=== PATIENT | male | born 1945 | race Caucasian/White ===

== ENCOUNTER 2017-09-06 12:39 | Inpatient (IN) | payer MEDICARE ==
[~2017-09-06] VITALS: Ht 175.3 cm; Wt 70.3 kg
--- OUTSIDE RECORDS SUMMARY | ~2017-09-06 | XMS | Encounter Summary ---
Demographics + + + | Address | [address] | | | [place] [address] | + + + | Home Phone | | + + + | Preferred Language | Unknown | + + + | Marital Status | Single | + + + | Scientologist Affiliation | Unknown | + + + | Race | White | + + + | Ethnic Group | Not or | + + + Author + + + | Author | [facility] | + + + | Organization | [facility] | + + + | Address | Unknown | + + + | Phone | Unavailable | + + + Support + + +---------+ + | Name | Relationship | Address | Phone | + + +---------+ + | Stacy Mcghee | ECON | Unknown | | + + +---------+ + Care Team Providers + +------+ + | Care Fence Setter Name | Role | Phone | + +------+ + | No Pcp Per Patient | PCP | Unavailable | + +------+ + Encounter Details +--------+ + + + + | Date | Type | Department | Care Team | Description | +--------+ + + + + | 07/25/ | Lab | [facility] [address] | [address] | | | 2017 | Requisition | [address] [facility] | [place] [address] | | | | | [address] [place], [place] | [address] | | | | | [address] | [facility] | | | | | | [facility] | | | | | | [place] [address] | | | | | | [phone] | | | | | | | | +--------+ + + + + Social History + +-------+ +--------+------+ | Tobacco [...] on file | | + + + as of this encounter Plan of Treatment + +--------+ + + | Name | Priori | Associated Diagnoses | Date/Time | | | ty | | | + +--------+ + + | HSR PROCESS ONLY | Routin | Encounter for | 07/25/2017 4:28 PM | | | e | other specified | PST | | | | special examinations | | | | | (CODE) | | + +--------+ + + as of this encounter Results NSCLC FISH PANLE, FFPE (07/22/2017 12:01 AM) + +--------+ + | [...] | + + + | Slide-Block | [facility] [address] | | [address] [place] [address] | + + + FISH, MOLECULAR PROBE, [...] | | | made by the clinical surface miner. This test | | | | was developed and its performance | | | | characteristics determined by the [facility] | | | | [facility]. It has | | | | not [...] 1988 | | | | (CLIA). The [facility] | | | | Laboratories are fully licensed by the | | | | [facility] under CLIA and are | | | | accredited by the [employer] | | | | Pathologists (CAP). Laboratory | | | | Director: Duke Gore M.D., | | | | Ph.D Electronically reviewed and signed | | | | by:Kalin Sahu, PhD, [facility] | | | | Horse [employer] St[employer] Clinical Molecular | | | | Geneticist07/30/2017 at 12:14 PM | | | | Reviewed and electronically signed by | | | | ERNESTINE CRUZ MD,[facility]07/30/2017 4:18 PM | | + + + + + + + | Specimen | Performing Laboratory | + + + | Slide-Block | [facility] [address] | | [address] [place] [address] | + + + GENETRABuyItRideIt LUNG CANCER PANEL (07/22/2017 12:01 AM) + + + + | Component | Value | Ref Range | + + + + | GENETRAILS LUNG | See Interpretation. | | | [...] on an Illumina | | | | [id number]. The minimum detectable mutant | | | [...] | | | characteristics determined by the [facility] | | | | [facility]. It has | | | [...] 1988 | | | | (CLIA). The [facility] | | | | Laboratories are fully licensed by the | | | | state [place] under CLIA and are | | | | accredited by the [employer] | | | | Pathologists (CAP). Laboratory | | | | Director: Duke Gore M.D., | | | | Ph.D Reviewed and electronically signed by | | | | KEN WORRELL MD08/07/2017 7:54 AM | | + + + + + + + | Specimen | Performing Laboratory | + + + | Slide-Block | [facility] [address] | | [address] [place] [address] | + + + in this encounter Visit Diagnoses + + | Diagnosis | + + | Encounter for other specified special examinations (CODE) | + +"
--- OUTSIDE RECORDS SUMMARY | ~2017-09-06 | XMS | Encounter Summary ---
Demographics + + + | Address | [address] | | | [place] [address] | + + + | Home Phone | | + + + | Preferred Language | Unknown | + + + | Marital Status | Single | + + + | Sabianism Affiliation | Unknown | + + + | Race | White | + + + | Ethnic Group | Not or | + + + Author + + + | Author | [facility] | + + + | Organization | [facility] | + + + | Address | Unknown | + + + | Phone | Unavailable | + + + Support + + +---------+ + | Name | Relationship | Address | Phone | + + +---------+ + | Stacy Mcghee | ECON | Unknown | | + + +---------+ + Care Team Providers + +------+ + | Care Reuse Technician Name | Role | Phone | + +------+ + | Unknown | PCP | Unavailable | + +------+ + Reason for Referral Diagnostic Testing (Routine) +--------+--------+ + + + + | Status | Reason | Specialty | Diagnoses / | Referred By | Referred To | | | | | Procedures | Contact | Contact | +--------+--------+ + + + + | Closed | | Radiology | Diagnoses | Manuelin, | Rad [facility] | | | | | Brain | Srinivasa Cope MD | [address] | | | | | metastases | [address] | | | | | ([facility]) | [address] | [facility] | | | | | Procedures | [address] | Mailcode: | | | | | MRI BRAIN | [place], [place] | [address] | | | | | RADIATION | [address] | [place] | | | | | THERAPY | Phone: | Research | | | | | [address]ING [address] | [phone] | [place] | | | | | CONTRAST | Fax: | [place], [place] | | | | | | [phone] | [address] | | | | | | | Phone: | | | | | | | [phone] | | | | | | | Fax: | | | | | | | [phone] | +--------+--------+ + + + + PROC - Dept/Practice Procedure (Routine) +--------+--------+ + + + + | Status | Reason | Specialty | Diagnoses / | Referred By | Referred To | | | | | Procedures | Contact | Contact | +--------+--------+ + + + + | Closed | | Radiation | Diagnoses | Zenobia, | [facility] | | | | Oncology | Brain | Srinivasa Cope MD | [place] [address] | | | | | metastases | [address] | [address] | | | | | ([facility]) | [address] | [facility] | | | | | Procedures | [address] | Mailcode: | | | | | SIMULATION | [place], [place] | [address] | | | | | IMAGING | [id number] [facility] | | | | | | Phone: | Hospital | | | | | | [phone] | [facility] | | | | | | Fax: | [place], [place] | | | | | | [phone] | [address] | | | | | | | Phone: | | | | | | | [phone] | | | | | | | Fax: | | | | | | | [phone] | +--------+--------+ + + + + Encounter Details +--------+ + + + + | Date | Type | Department | Care Team | Description | +--------+ + + + + | 08/06/ | It Compliance Manager | Radiation Oncology | Srinivasa Fregoso, | Brain metastases | | 2018 | | at [facility] [address] | [address] | (HCC) (Primary Dx) | | | | [address] | [facility] | | | | | [address]i | [place], [place] | | | | | [place], | [address] | | | | | [place] [address] | [phone] | | | | | [phone] | | | +--------+ + + + [...] as of this encounter Plan of Treatment Not on fileas of this encounter Results SIMULATION IMAGING (08/13/2017 12:01 PM) + + | Narrative | + + | Refer to the encounter notes for imaging results. | + + MRI BRAIN RADIATION THERAPY PLANNING [address] CONTRAST (08/12/2017 8:29 AM) + + + | Specimen | Performing Laboratory | + + + | | [facility] RADIOLOGY VOICE RECOGNITION | + + + [...] report as now presented. | + + in this encounter Visit Diagnoses + + | Diagnosis | + + | Brain metastases (HCC) - Primary | + + | Secondary malignant neoplasm of brain and spinal cord | + +"
--- OUTSIDE RECORDS SUMMARY | ~2017-09-06 | XMS | Encounter Summary ---
Demographics + + + | Address | [address] | | | [place] [address] | + + + | Home Phone | | + + + | Preferred Language | Unknown | + + + | Marital Status | Single | + + + | Latter-Day Affiliation | Unknown | + + + | Race | White | + + + | Ethnic Group | Not or | + + + Author + + + | Author | [facility] | + + + | Organization | [facility] | + + + | Address | Unknown | + + + | Phone | Unavailable | + + + Support + + +---------+ + | Name | Relationship | Address | Phone | + + +---------+ + | Stacy Mcghee | ECON | Unknown | | + + +---------+ + Care Team Providers + +------+ + | Care Beater Lead Name | Role | Phone | + +------+ + | No Pcp Per Patient | PCP | Unavailable | + +------+ + Encounter Details +--------+ + + + + | Date | Type | Department | Care Team | Description | +--------+ + + + + | 08/06/ | Procedure | Diagnostic Imaging | | | | 2018 | Pass | Services at [facility] | | | | | | [address] | | | | | | [facility] | | | | | | Mailcode: [address] | | | | | | [place] [facility] | | | | | | [place], [place] | | | | | | [address] | | | | | | [phone] | | | +--------+ + + + [...] Treatment Not on fileas of this encounter Visit Diagnoses Not on filein this encounter"
--- OUTSIDE RECORDS SUMMARY | ~2017-09-06 | XMS | Encounter Summary ---
Demographics + + + | Address | [address] | | | [place] [address] | + + + | Home Phone | | + + + | Preferred Language | Unknown | + + + | Marital Status | Single | + + + | Protestant Affiliation | Unknown | + + + | Race | White | + + + | Ethnic Group | Not or | + + + Author + + + | Author | [facility] | + + + | Organization | [facility] | + + + | Address | Unknown | + + + | Phone | Unavailable | + + + Support + + +---------+ + | Name | Relationship | Address | Phone | + + +---------+ + | Stacy Mcghee | ECON | Unknown | | + + +---------+ + Care Team Providers + +------+ + | Care Core Java Software Engineer Name | Role | Phone | + +------+ + | No Pcp Per Patient | PCP | Unavailable | + +------+ + Reason for Visit + + + | Reason | Comments | + + + | Teaching session | | | with patient | | + + + Encounter Details +--------+ + + + + | Date | Type | Department | Care Team | Description | +--------+ + + + + | 08/19/ | Clinical | Radiation Oncology | [facility] [address] | Teaching session | | 2017 | Support | at [facility] [address] | [address] | with patient | | | Staff | [address] | [address] [place], [place] | | | | | [address] | [address] | | | | | [place], | | | | | | [place] [address] | | | | | | [phone] | | | +--------+ + + + [...] + + + as of this encounter Progress Ash Patel RN - 08/19/2017 11:00 AM PDTNursing Note: Met with Emir Mcghee today to give site specific radiation treatment education. Patient i s alert, oriented, and wheelchair with unstable gait, and is accompanied by his son in law. The patient lives in [place], although he is currently staying at the [facility] in [place]. The patient is here to begin radiation treatment to the brain and has verified this is the correct location of the treatment. Patient oriented to clinic, treatment routine, projected length of treatment (6 fractions), and the schedule for weekly physician visits. A site specific radiation therapy information al packet was given and possible side effects were reviewed. Patient verbalized understandin g of information discussed. Patient indicated that he will be starting chemotherapy soon. 15 minutes was spent in face to face discussion and teaching with the patient during this e ncounter. Refer to Patient Education Report for additional documentation. in this encounter Plan of Treatment Not on fileas of this encounter Visit Diagnoses + + | Diagnosis | + + | Encounter for radiotherapy - Primary | + + | Radiotherapy | + +"
--- OUTSIDE RECORDS SUMMARY | ~2017-09-06 | XMS | Encounter Summary ---
Demographics + + + | Address | [address] | | | [place] [address] | + + + | Home Phone | | + + + | Preferred Language | Unknown | + + + | Marital Status | Single | + + + | Anglican Affiliation | Unknown | + + + | Race | White | + + + | Ethnic Group | Not or | + + + Author + + + | Author | [facility] | + + + | Organization | [facility] | + + + | Address | Unknown | + + + | Phone | Unavailable | + + + Support + + +---------+ + | Name | Relationship | Address | Phone | + + +---------+ + | Stacy Mcghee | ECON | Unknown | | + + +---------+ + Care Team Providers + +------+ + | Care Senior Firmware Engineer Name | Role | Phone | + +------+ + | No Pcp Per Patient | PCP | Unavailable | + +------+ + Reason for Visit Consultation (Routine) + +--------+ + + + + | Status | Reason | Specialty | Diagnoses / | Referred By | Referred To | | | | | Procedures | Contact | Contact | + +--------+ + + + + | Authorized | | Radiation | Diagnoses | Danni, | Zenobia, | | | | Oncology | Malignant | Jass Bowles MD | Srinivasa Cope MD | | | | | neoplasm of | [place] [address] | [address] [facility] | | | | | upper lobe, | [facility] | [facility] | | | | | left | CENTER [address] | [address] [place], | | | | | bronchus or | [address] | [place] | | | | | lung Lung | [place] | [address] | | | | | Ca w/ Brain | [address] | Phone: | | | | | Mets | [place], | [phone] | | | | | Procedures | [place] [address] | Fax: | | | | | Consult, | Phone: | [phone] | | | | | Treat, F/U | [phone] | | | | | | | Fax: | | | | | | | [phone] | | + +--------+ + + + + Encounter Details +--------+ + + + + | Date | Type | Department | Care Team | Description | +--------+ + + + + | 08/21/ | Hospital | Radiation Oncology | | | | 2018 | Encounter | at [facility] [address] | | | | | | [address] | | | | | | [address] | | | | | | [place], | | | | | | [place] [address] | | | | | | [phone] | | | +--------+ + + + [...] + + + as of this encounter Medications at Time of Discharge + + +-------+---------+ + + | Medication | Sig. | Disp. | Refills | Start | End Date | | | | | | Date | | + + +-------+---------+ + + | atorvastatin 40 mg | Take 40 mg by mouth | | | | | | oral tablet | once daily. | | | | | + + +-------+---------+ + + | | 1 drop as needed. | | | | | | carboxymethylcellulo | | | | | | | se 0.5 % ophthalmic | | | | | | | (eye) dropperette | | | | | | + + +-------+---------+ + + | cetirizine 10 mg | Take 10 mg by mouth | | | | | | oral tablet | once daily. | | | | | + + +-------+---------+ + + | dexamethasone 4 mg | Take 4 mg by mouth | | | | | | oral tablet | once daily. | | | | | + + +-------+---------+ + + | ERGOCALCIFEROL | Take 1,000 Units by | | | | | | (VITAMIN D2) | mouth. | | | | | | (VITAMIN D ORAL) | | | | | | + + +-------+---------+ + + | levETIRAcetam 500 | take 1 tablet by | | 0 | 07/05/19 | | | mg oral tablet | mouth twice a day | | | 18 | | + + +-------+---------+ + + | naproxen 500 mg | Take 500 mg by mouth | | | | | | oral tablet | two times daily. | | | | | + + +-------+---------+ + + | OXYCODONE HCL | Take by mouth as | | | | | | (OXYCODONE ORAL) | needed. | | | | | + + +-------+---------+ + + | sildenafil 100 mg | Take 100 mg by mouth | | | | | | oral tablet | once daily as | | | | | | | needed. Take | | | | | | | approximately 1 hour | | | | | | | before sexual | | | | | | | activity. Max of | | | | | | | once daily. | | | | | + + +-------+---------+ + + as of this encounter Plan of Treatment Not on fileas of this encounter Visit Diagnoses Not on filein this encounter"
--- OUTSIDE RECORDS SUMMARY | ~2017-09-06 | XMS | Encounter Summary ---
Demographics + + + | Address | [address] | | | [place] [address] | + + + | Home Phone | | + + + | Preferred Language | Unknown | + + + | Marital Status | Single | + + + | Zoroastrian Affiliation | Unknown | + + + | Race | White | + + + | Ethnic Group | Not or | + + + Author + + + | Author | [facility] | + + + | Organization | [facility] | + + + | Address | Unknown | + + + | Phone | Unavailable | + + + Support + + +---------+ + | Name | Relationship | Address | Phone | + + +---------+ + | Stacy Mcghee | ECON | Unknown | | + + +---------+ + Care Team Providers + +------+ + | Care Mold Repair Technician Name | Role | Phone | + +------+ + | No Pcp Per Patient | PCP | Unavailable | + +------+ + Encounter Details +--------+---------+ + + + | Date | Type | Department | Care Team | Description | +--------+---------+ + + + | 08/21/ | Office | Radiation Oncology | Srinivasa Fregoso, | Encounter for | | 2018 | Visit | at [facility] [address] | [address] | radiotherapy | | | | [address] | [address] | (Primary Dx) | | | | [address] | [place], [place] | | | | | [place], | [address] | | | | | [place] [address] | [phone] | | | | | [phone] | | | +--------+---------+ + + + Social History + +-------+ [...] + + + as of this encounter Last Filed Vital Signs + + + + | Vital Sign | Reading | Time Taken | + + + + | Blood Pressure | 114/63 | 08/21/2017 12:07 PM PDT | + + + + | Pulse | 61 | 08/21/2017 12:07 PM PDT | + + + + | Temperature | 36.6 C (97.9 F) | 08/21/2017 12:07 PM PDT | + + + + | Respiratory Rate | 18 | 08/21/2017 12:07 PM PDT | + + + + | Oxygen Saturation | 96% | 08/21/2017 12:07 PM PDT | + + + + | Inhaled Oxygen | - | - | | Concentration | | | + + + + | Weight | 70.3 kg (155 lb) | 08/21/2017 12:07 PM PDT | + + + + | Height | - | - | + + + + | Body Mass Index | - | - | + + + + in this encounter Progress Notes Srinivasa Fregoso MD - 08/21/2017 12:30 PM PDTFormatting of this note may be different from the original. Radiation Oncology - On Treatment Visit Note ID: [id number] y.o. 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 Plan for SBRT 3-5fx to re section cavities and SRS to gross disease in R anterior frontal and R temporal lobes. He is here today during treatment for an on treatment visit. Multiple lesions Concurrent Chemotherapy: Sequential SUBJECTIVE: He is feeling fatigued. He did not sleep well last night because the facility he is staying at was noisy. He reports back pain. Taking oxycodone for pain relief. No headaches or swell ing. OBJECTIVE: Vital Signs: BP 114/63 | Pulse 61 | Temp (Src) 36.6 C (97.9 F) (Oral) | RR 18 | Wt 70.3 kg (155 lb) | SpO2 96[Room Air[% Pain Score: 0 Wt Readings from Last 3 Encounters: 08/21/17 70.3 kg (155 lb) Emir Mcghee's mode of transportation is wheelchair. Skin: no erythema. LABS: Recent Labs 08/12/17 0659 CR 0.9 ASSESSMENT/PLAN: Tolerating treatment. The patient's chart and films were reviewed. Cont RT. I have reviewed and verified the above scribed note of my visit with this patient as record ed by Afsaneh Suh. SRINIVASA FREGOSO MD RADIATION ONCOLOGY AT [address] [address] I, Afsaneh Suh, am functioning as a scribe for Dr. Srinivasa Fregoso MD, PhD. Sandro Lazo MA - 08/21/2017 12:30 PM PDTPt presents for an OTV. Pt is AOX3, walks with a steady gait. Vital signs as noted in EPIC.in this encounter Plan of Treatment Not on fileas of this encounter Visit Diagnoses + + | Diagnosis | + + | Encounter for radiotherapy - Primary | + + | Radiotherapy | + +"
--- OUTSIDE RECORDS SUMMARY | ~2017-09-06 | XMS | Encounter Summary ---
Demographics + + + | Address | [address] | | | [place] [address] | + + + | Home Phone | | + + + | Preferred Language | Unknown | + + + | Marital Status | Single | + + + | Latter Day Affiliation | Unknown | + + + | Race | White | + + + | Ethnic Group | Not or | + + + Author + + + | Author | [facility] | + + + | Organization | [facility] | + + + | Address | Unknown | + + + | Phone | Unavailable | + + + Support + + +---------+ + | Name | Relationship | Address | Phone | + + +---------+ + | Stacy Mcghee | ECON | Unknown | | + + +---------+ + Care Team Providers + +------+ + | Care Painter Chassis Name | Role | Phone | + +------+ + | No Pcp Per Patient | PCP | Unavailable | + +------+ + Encounter Details +--------+ + + + + | Date | Type | Department | Care Team | Description | +--------+ + + + + | 08/14/ | Documentati | Radiation Oncology | Srinivasa Fregoso, | | | 2018 | on | at [facility] [address] | [address] | | | | | [address] | [address] | | | | | [address] | [place], [place] | | | | | [place], | [address] | | | | | [place] [address] | [phone] | | | | | [phone] | | | +--------+ + + + [...]
--- OUTSIDE RECORDS SUMMARY | ~2017-09-06 | XMS | Encounter Summary ---
Demographics + + + | Address | [address] | | | [place] [address] | + + + | Home Phone | | + + + | Preferred Language | Unknown | + + + | Marital Status | Single | + + + | Taoism Affiliation | Unknown | + + + | Race | White | + + + | Ethnic Group | Not or | + + + Author + + + | Author | [facility] | + + + | Organization | [facility] | + + + | Address | Unknown | + + + | Phone | Unavailable | + + + Support + + +---------+ + | Name | Relationship | Address | Phone | + + +---------+ + | Stacy Mcghee | ECON | Unknown | | + + +---------+ + Care Team Providers + +------+ + | Care Pss Delivery Professional Name | Role | Phone | + [...] Closed | | Radiology | Diagnoses | [place], | Rad Mri Hrc | | | | | Brain | Srinivasa Cope MD | [address] | | | | | metastases | [address] | [address] | | | | | ([facility]) | [address] | [facility] | | | | | Procedures | [facility] | Mailcode: | | | | | MRI BRAIN | [place], [place] | [address] | | | | | RADIATION | [address] | [place] | | | | | THERAPY | Phone: | Research | | | | | [address] | [phone] | Center | | | | | CONTRAST | Fax: | [place], [place] | | | | | | [phone] | [address] | | | | | | | Phone: | | | | | | | [phone] | | | | | | | Fax: | | | | | | | [phone] | +--------+--------+ + + + + Diagnostic Testing (Routine) +--------+--------+ + + + + | Status | Reason | Specialty | Diagnoses / | Referred By | Referred To | | | | | Procedures | Contact | Contact | +--------+--------+ + + + + | Closed | | Radiology | Diagnoses | [place], | Rad Mri Hrc | | | | | Brain | Srinivasa Cope MD | [address] | | | | | metastases | [address] | [address] | | | | | ([facility]) | [address] | [facility] | | | | | Procedures | [facility] | Mailcode: | | | | | MRI BRAIN | [place], [place] | [address] | | | | | RADIATION | [address] | [place] | | | | | THERAPY | Phone: | Research | | | | | [address] | [phone] | [place] | | | | | CONTRAST | Fax: | [place], [place] | | | | | | [phone] | [address] | | | | | | | Phone: | | | | | | | [phone] | | | | | | | Fax: | | | | | | | [phone] | +--------+--------+ + + + + Reason for Visit Diagnostic Testing (Routine) +--------+--------+ + + + + | Status | Reason | Specialty | Diagnoses / | Referred By | Referred To | | | | | Procedures | Contact | Contact | +--------+--------+ + + + + | Closed | | Radiology | Diagnoses | [place], | Rad [facility]ri H[facility] | | | | | Brain | Srinivasa Cope MD | [address] | | | | | metastases | [address] | [address] | | | | | (HCC) | [address] | [facility] | | | | | Procedures | [facility] | Mailcode: | | | | | MRI BRAIN | [place], [place] | [address] | | | | | RADIATION | [address] | [place] | | | | | THERAPY | Phone: | Research | | | | | [address] | [phone] | Center | | | | | CONTRAST | Fax: | [place], [place] | | | | | | [phone] | [address] | | | | | | | Phone: | | | | | | | [phone] | | | | | | | Fax: | | | | | | | [phone] | +--------+--------+ + + + + Encounter Details +--------+ + + + + | Date | Type | Department | Care Team | Description | +--------+ + + + + | 08/12/ | Hospital | Diagnostic Imaging | Srinivasa Fregoso, | | | 2018 | Encounter | Services at [facility] | [address] | | | | | [address] | [facility] | | | | | [facility] | [place], [place] | | | | | [address]: [address] | [address] | | | | | [facility] | [phone] | | | | | [place], [place] | | | | | | [address] | | | | | | [phone] | | | +--------+ + + + [...] Not on fileas of this encounter Results MRI BRAIN RADIATION THERAPY PLANNING [address] CONTRAST [...] | + + + | Blood | [facility] [address] | | | [place] [address] | + + + in this encounter Visit Diagnoses + + | Diagnosis | + + | Brain metastases (HCC) | + + | Secondary malignant neoplasm of brain and spinal cord | + + Administered Medications + +---------+ +-------+------+------+ | Medication Order | MAR | Action | Dose | Rate | Site | | | Action | Date | | | | + +---------+ +-------+------+------+ | gadoterate meglumine (DOTAREM) | IV Push | | 15 mL | | | | 0.5 mmol/mL injection 15 mL 15 | | 8 08:00 | | | | | mL (rounded from 14.8 mL = 0.2 | | PDT | | | | | mL/kg | | | | | | | 74 kg Order-specific weight), | | | | | | | intravenous, ONCE, 1 dose, Mon | | | | | | | 08/12/17 at 0800 | | | | | | + +---------+ +-------+------+------+ +---+---+ | | | +---+---+ in this encounter"
--- OUTSIDE RECORDS SUMMARY | ~2017-09-06 | XMS | Encounter Summary ---
Demographics + + + | Address | [address] | | | [place] [address] | + + + | Home Phone | | + + + | Preferred Language | Unknown | + + + | Marital Status | Single | + + + | Mormonism Affiliation | Unknown | + + + | Race | White | + + + | Ethnic Group | Not or | + + + Author + + + | Author | [facility] | + + + | Organization | [facility] | + + + | Address | Unknown | + + + | Phone | Unavailable | + + + Support + + +---------+ + | Name | Relationship | Address | Phone | + + +---------+ + | Stacy Mcghee | ECON | Unknown | | + + +---------+ + Care Team Providers + +------+ + | Care Bank Vault Clerk Name | Role | Phone | + +------+ + | No Pcp Per Patient | PCP | Unavailable | + +------+ + Reason for Referral PROC - Dept/Practice Procedure (Routine) +--------+--------+ + [...] Aldo Blum | | | | | ([facility]) | [place] | [facility] | | | | | Procedures | [facility] | Mailcode: | | | | | SIMULATION | [facility] [place] | [address] | | | | | IMAGING | [address] [facility] | | | | | | Phone: | [facility] | | | | | | [phone] | [facility] | | | | | | Fax: | [place], [place] | | | | | | [phone] | [address] | | | | | | | Phone: | | | | | | | [phone] | | | | | | | Fax: | | | | | | | [phone] | +--------+--------+ + + + + PROC [...] Aldo Blum | | | | | ([facility]) | [place] | [facility] | | | | | Procedures | [facility] | Mailcode: | | | | | SIMULATION | [place], [place] | [address] | | | | | IMAGING | [address] [facility] | | | | | | Phone: | Hospital | | | | | | [phone] | [facility] | | | | | | Fax: | [place], [place] | | | | | | [phone] | [address] | | | | | | | Phone: | | | | | | | [phone] | | | | | | | Fax: | | | | | | | [phone] | +--------+--------+ + + + + Reason for Visit PROC - Dept/Practice Procedure (Routine) +--------+--------+ + + + + | Status | Reason | Specialty | Diagnoses / | Referred By | Referred To | | | | | Procedures | Contact | Contact | +--------+--------+ + + + + | Closed | | Radiation | Diagnoses | [facility] | [facility] | | | | Oncology | Brain | Srinivasa Cope MD | [place] [address] | | | | | metastases | [address] | Aldo Blum | | | | | ([facility]) | [place] | [facility] | | | | | Procedures | [facility] | Mailcode: | | | | | SIMULATION | [place], [place] | [address] | | | | | IMAGING | [address] [facility] | | | | | | Phone: | Hospital | | | | | | [phone] | [facility] | | | | | | Fax: | [place], [place] | | | | | | [phone] | [address] | | | | | | | Phone: | | | | | | | [phone] | | | | | | | Fax: | | | | | | | [phone] | +--------+--------+ + + + + Encounter Details +--------+ + + + + | Date | Type | Department | Care Team | Description | +--------+ + + + + | 08/13/ | Hospital | Radiation Oncology | | | | 2018 | Encounter | at [facility] [address] | | | | | | [facility] | | | | | | Annabel Tripathi | | | | | | [place], | | | | | | [place] [address] | | | | | | [phone] | | | +--------+ + + + [...] notes for imaging results. | + + in this encounter Visit Diagnoses + + | Diagnosis | + + | Brain metastases (HCC) | + + | Secondary malignant neoplasm of brain and spinal cord | + +"
--- OUTSIDE RECORDS SUMMARY | ~2017-09-06 | XMS | Encounter Summary ---
Demographics + + + | Address | [address] | | | [place] [address] | + + + | Home Phone | | + + + | Preferred Language | Unknown | + + + | Marital Status | Single | + + + | Orthodox Affiliation | Unknown | + + + | Race | White | + + + | Ethnic Group | Not or | + + + Author + + + | Author | [facility] | + + + | Organization | [facility] | + + + | Address | Unknown | + + + | Phone | Unavailable | + + + Support + + +---------+ + | Name | Relationship | Address | Phone | + + +---------+ + | Stacy Mcghee | ECON | Unknown | | + + +---------+ + Care Team Providers + +------+ + | Care Business Partner Name | Role | Phone | + [...] | | | | neoplasm of | [place] | [address] [facility] | | | | | upper lobe, | A MEDICAL | [facility] | | | | | left | [address]ENTER [address] | [address] [place], | | | | | bronchus or | [address] | [place] | | | | | lung Lung | [place] | [address] | | | | | Ca w/ Brain | [address] | Phone: | | | | | Mets | [place], | [phone] | | | | | Procedures | [place] [address] | Fax: | | | | | Consult, | Phone: | [phone] | | | | | Treat, F/U | [phone] | | | | | | | Fax: | | | | | | | [phone] | | + +--------+ + + + + Encounter Details +--------+ + + + + | Date | Type | Department | Care Team | Description | +--------+ + + + + | 08/28/ | Hospital | Radiation Oncology | | | | 2018 | Encounter | at [facility] [address] | | | | | | [address] | | | | | | Annabel Tripathi | | | | | | [place], | | | | | | [place] [address] | | | | | | [phone] | | | +--------+ + + + [...]
--- OUTSIDE RECORDS SUMMARY | ~2017-09-06 | XMS | Encounter Summary ---
Demographics + + + | Address | [address] | | | [place] [address] | + + + | Home Phone | | + + + | Preferred Language | Unknown | + + + | Marital Status | Single | + + + | Episcopalian Affiliation | Unknown | + + + | Race | White | + + + | Ethnic Group | Not or | + + + Author + + + | Author | [facility] | + + + | Organization | [facility] | + + + | Address | Unknown | + + + | Phone | Unavailable | + + + Support + + +---------+ + | Name | Relationship | Address | Phone | + + +---------+ + | Stacy Mcghee | ECON | Unknown | | + + +---------+ + Care Team Providers + +------+ + | Care Technology Assistant Name | Role | Phone | + [...] | | | | neoplasm of | [place] | [address] [facility] | | | | | upper lobe, | A MEDICAL | [facility] | | | | | left | CENTER [address] | [address] [place], | | | | | bronchus or | [address] | [place] | | | | | lung Lung | [place] | [address] | | | | | Ca w/ Brain | [address] | Phone: | | | | | Mets | [place], | [phone] | | | | | Procedures | [place] [address] | Fax: | | | | | Consult, | Phone: | [phone] | | | | | Treat, F/U | [phone] | | | | | | | Fax: | | | | | | | [phone] | | + +--------+ + + + + Encounter Details +--------+ + + + + | Date | Type | Department | Care Team | Description | +--------+ + + + + | 08/26/ | Hospital | Radiation Oncology | | | | 2018 | Encounter | at [facility] [address] | | | | | | [address] [facility] | | | | | | Annabel Tripathi | | | | | | [place], | | | | | | [place] [address] | | | | | | [phone] | | | +--------+ + + + [...]
--- OUTSIDE RECORDS SUMMARY | ~2017-09-06 | XMS | Encounter Summary ---
Demographics + + + | Address | [address] | | | [place] [address] | + + + | Home Phone | | + + + | Preferred Language | Unknown | + + + | Marital Status | Single | + + + | Spiritism Affiliation | Unknown | + + + | Race | White | + + + | Ethnic Group | Not or | + + + Author + + + | Author | [facility] | + + + | Organization | [facility] | + + + | Address | Unknown | + + + | Phone | Unavailable | + + + Support + + +---------+ + | Name | Relationship | Address | Phone | + + +---------+ + | Stacy Mcghee | ECON | Unknown | | + + +---------+ + Care Team Providers + +------+ + | Care Choir Singer Name | Role | Phone | + [...] | | | | neoplasm of | [place] | [address] [facility] | | | | | upper lobe, | A MEDICAL | [facility] | | | | | left | CENTER [address] | [address] [place], | | | | | bronchus or | [address] | [place] | | | | | lung Lung | [place] | [address] | | | | | Ca w/ Brain | [address] | Phone: | | | | | Mets | [place], | [phone] | | | | | Procedures | [place] [address] | Fax: | | | | | Consult, | Phone: | [phone] | | | | | Treat, F/U | [phone] | | | | | | | Fax: | | | | | | | [phone] | | + +--------+ + + + + Encounter Details +--------+ + + + + | Date | Type | Department | Care Team | Description | +--------+ + + + + | 08/23/ | Hospital | Radiation Oncology | | | | 2018 | Encounter | at [facility] [address] | | | | | | [address] [facility] | | | | | | Annabel Tripathi | | | | | | [place], | | | | | | [place] [address] | | | | | | [phone] | | | +--------+ + + + [...]
--- OUTSIDE RECORDS SUMMARY | ~2017-09-06 | XMS | Encounter Summary ---
Demographics + + + | Address | [address] | | | [place] [address] | + + + | Home Phone | | + + + | Preferred Language | Unknown | + + + | Marital Status | Single | + + + | Adventism Affiliation | Unknown | + + + | Race | White | + + + | Ethnic Group | Not or | + + + Author + + + | Author | [facility] | + + + | Organization | [facility] | + + + | Address | Unknown | + + + | Phone | Unavailable | + + + Support + + +---------+ + | Name | Relationship | Address | Phone | + + +---------+ + | Stacy Mcghee | ECON | Unknown | | + + +---------+ + Care Team Providers + +------+ + | Care Clothing Sales Assistant Name | Role | Phone | [...] | | | | neoplasm of | [place] | [address] [facility] | | | | | upper lobe, | A MEDICAL | [facility] | | | | | left | CENTER [address] | Rd [place], | | | | | bronchus or | [address] | [place] | | | | | lung Lung | [place] | [address] | | | | | Ca w/ Brain | [address] | Phone: | | | | | Mets | [place], | [phone] | | | | | Procedures | [place] [address] | Fax: | | | | | Consult, | Phone: | [phone] | | | | | Treat, F/U | [phone] | | | | | | | Fax: | | | | | | | [phone] | | + +--------+ + + + [...] | | | | | | [place], | | | | | | [place] [address] | | | | | | [phone] | | | +--------+ + + + [...]
--- OUTSIDE RECORDS SUMMARY | ~2017-09-06 | XMS | Encounter Summary ---
Demographics + + + | Address | [address] | | | [place] [address] | + + + | Home Phone | | + + + | Preferred Language | Unknown | + + + | Marital Status | Single | + + + | Religion Affiliation | Unknown | + + + | Race | Unknown | + + + | Ethnic Group | Unknown | + + + Author + + + | Author | [facility] | | | and [place] | + + + | Organization | [facility] | | | and [place] | + + + | Address | Unknown | + + + | Phone | Unavailable | + + + Support + + +---------+ + | Name | Relationship | Address | Phone | + + +---------+ + | Manuel Mcghee | ECON | Unknown | | + + +---------+ + | Sarita Patton | ECON | Unknown | | + + +---------+ + Care Team Providers + +------+ + | Care Shearing Shed Worker Name | Role | Phone | + +------+ + | Unknown, Doctor | PCP | Unavailable | + +------+ + Reason for Referral Diagnostic/Screening (Routine) + +--------+ + + + + | Status | Reason | Specialty | Diagnoses / | Referred By | Referred To | | | | | Procedures | Contact | Contact | + +--------+ + + + + | Pending | | Radiology | Diagnoses | Ayla | [facility] | | Review | | | Mass of | Tatyana, SUPERVISOR POLE YARD | [place] | | | | | upper lobe | [address] [place] | | | | | of right | [address] | MEDICAL | | | | | lung | [address] [place] | CENTER [address] | | | | | Procedures | [place] | [address] | | | | | PET CT Skull | [address] | [place], | | | | | Base To Mid | Phone: | [place] [address] | | | | | Thigh | [phone] | Phone: | | | | | | Fax: | [phone] | | | | | | [phone] | Fax: | | | | | | | [phone] | + +--------+ + + + + Encounter Details +--------+ + + + + | Date | Type | Department | Care Team | Description | +--------+ + + + + | 07/15/ | Ancillary | [facility] | Tatyana Aguila FNP | Mass of upper lobe | | 2018 | Orders | MED CTR XRAY [address] | [address] | of right lung | | | | [address] [place] | [place] | | | | | [place] [address] | [address] | | | | | [phone] | | | +--------+ + + + [...] Name | Priori | Associated Diagnoses | Order Schedule | | | ty | | | + +--------+ + + | PET CT Skull Base To Mid Thigh | Routin | Mass of upper lobe | Expected: | | | e | of right lung | 07/15/2017, Expires: | | | | | 07/15/2018 | + +--------+ + + as of this encounter Visit Diagnoses + + | Diagnosis | + + | Mass of upper lobe of right lung | + +"
--- OUTSIDE RECORDS SUMMARY | ~2017-09-06 | XMS | Encounter Summary ---
Demographics + + + | Address | [address] | | | [place] [address] | + + + | Home Phone | | + + + | Preferred Language | Unknown | + + + | Marital Status | Single | + + + | Synagogue Affiliation | Unknown | + + + | Race | White | + + + | Ethnic Group | Not or | + + + Author + + + | Author | [facility] | + + + | Organization | [facility] | + + + | Address | Unknown | + + + | Phone | Unavailable | + + + Support + + +---------+ + | Name | Relationship | Address | Phone | + + +---------+ + | Stacy Mcghee | ECON | Unknown | | + + +---------+ + Care Team Providers + +------+ + | Care Glass Technician/Installer Name | Role | Phone | + [...] | | | | neoplasm of | [place] | [address] [facility] | | | | | upper lobe, | A MEDICAL | [facility] | | | | | left | CENTER [address] | [address] [place], | | | | | bronchus or | [address] | [place] | | | | | lung Lung | [place] | [address] | | | | | Ca w/ Brain | [address] | Phone: | | | | | Mets | [place], | [phone] | | | | | Procedures | [place] [address] | Fax: | | | | | Consult, | Phone: | [phone] | | | | | Treat, F/U | [phone] | | | | | | | Fax: | | | | | | | [phone] | | + +--------+ + + + [...] [place] | | | | | | [place], | | | | | | [place] [address] | | | | | | [phone] | | | +--------+ + + + [...]
--- OUTSIDE RECORDS SUMMARY | ~2017-09-06 | XMS | Encounter Summary ---
Demographics + + + | Address | [address] | | | [place] [address] | + + + | Home Phone | | + + + | Preferred Language | Unknown | + + + | Marital Status | Single | + + + | Holiness Affiliation | Unknown | + + + | Race | White | + + + | Ethnic Group | Not or | + + + Author + + + | Author | [facility] | + + + | Organization | [facility] | + + + | Address | Unknown | + + + | Phone | Unavailable | + + + Support + + +---------+ + | Name | Relationship | Address | Phone | + + +---------+ + | Stacy Mcghee | ECON | Unknown | | + + +---------+ + Care Team Providers + +------+ + | Care Vp Strategic Partnerships Name | Role | Phone | + [...] Aldo Blum | | | | | ([facility]) | [place] | [facility] | | | | | Procedures | [place] | Mailcode: | | | | | MRI BRAIN | [place], [place] | [address] | | | | | RADIATION | [address] | [place] | | | | | THERAPY | Phone: | Research | | | | | PLANNING [address] | [phone] | [place] | | | | | CONTRAST | Fax: | [place], [place] | | | | | | [phone] | [address] | | | | | | | Phone: | | | | | | | [phone] | | | | | | | Fax: | | | | | | | [phone] | +--------+--------+ + + + + PROC [...] Aldo Blum | | | | | ([facility]) | [place] | [facility] | | | | | Procedures | [place] | Mailcode: | | | | | SIMULATION | [place], [place] | [address] | | | | | IMAGING | [address] [facility] | | | | | | Phone: | Hospital | | | | | | [phone] | [facility] | | | | | | Fax: | [place], [place] | | | | | | [phone] | [address] | | | | | | | Phone: | | | | | | | [phone] | | | | | | | Fax: | | | | | | | [phone] | +--------+--------+ + + + + Encounter Details +--------+ + + + + | Date | Type | Department | Care Team | Description | +--------+ + + + + | 08/06/ | Computer Education Teacher | Radiation Oncology | Srinivasa Fregoso, | Brain metastases | | 2018 | | at [facility] [address] | [address] | (HCC) (Primary Dx) | | | | [address] [facility] [place] | [facility] | | | | | Annabel Tripathi | [place], [place] | | | | | [place], | [address] | | | | | [place] [address] | [phone] | | | | | [phone] | | | +--------+ + + + [...] Laboratory | + + + | | [facility] RADIOLOGY VOICE RECOGNITION | + + [...]
--- OUTSIDE RECORDS SUMMARY | ~2017-09-06 | XMS | Encounter Summary ---
Demographics + + + | Address | [address] | | | [place] [address] | + + + | Home Phone | | + + + | Preferred Language | Unknown | + + + | Marital Status | Single | + + + | Anabaptism Affiliation | Unknown | + + + [...] Team Providers + +------+ + | Care Publications Sales Representative Name | Role | Phone | + [...] | | | | neoplasm of | [place] | [address] [facility] | | | | | upper lobe, | A MEDICAL | [facility] | | | | | left | CENTER [address] | [address] [place], | | | | | bronchus or | [address] | [place] | | | | | lung Lung | [place] | [address] | | | | | Ca w/ Brain | [address] | Phone: | | | | | Mets | [place], | [phone] | | | | | Procedures | [place] [address] | Fax: | | | | | Consult, | Phone: | [phone] | | | | | Treat, F/U | [phone] | | | | | | | Fax: | | | | | | | [phone] | | + +--------+ + + + + Encounter Details +--------+ + + + + | Date | Type | Department | Care Team | Description | +--------+ + + + + | 08/30/ | Hospital | Radiation Oncology | | | | 2018 | Encounter | at [facility] [address] | | | | | | [facility] | | | | | | Annabel Tripathi | | | | | | [place], | | | | | | [place] [address] | | | | | | [phone] | | | +--------+ + + + [...]
--- OUTSIDE RECORDS SUMMARY | ~2017-09-06 | XMS | Encounter Summary ---
Demographics + + + | Address | [address] | | | [place] [address] | + + + | Home Phone | | + + + | Preferred Language | Unknown | + + + | Marital Status | Single | + + + | Shinto Affiliation | Unknown | + + + | Race | White | + + + | Ethnic Group | Not or | + + + Author + + + | Author | [facility] | + + + | Organization | [facility] | + + + | Address | Unknown | + + + | Phone | Unavailable | + + + Support + + +---------+ + | Name | Relationship | Address | Phone | + + +---------+ + | Stacy Mcghee | ECON | Unknown | | + + +---------+ + Care Team Providers + +------+ + | Care Special Distribution Clerk Name | Role | Phone | + +------+ + | No Pcp Per Patient | PCP | Unavailable | + +------+ + Encounter Details +--------+ + + + + | Date | Type | Department | Care Team | Description | +--------+ + + + + | 08/22/ | Documentati | Radiation Oncology | [facility] [address] | | | 2018 | on | at [facility] [address] | [address] | | | | | [facility] [facility] | [place], [place] | | | | | Annabel [place]pathi | [address] | | | | | [place], | | | | | | [place] [address] | | | | | | [phone] | | | +--------+ + + + [...]
--- OUTSIDE RECORDS SUMMARY | ~2017-09-06 | XMS | Encounter Summary ---
Demographics + + + | Address | [address] | | | [place] [address] | + + + | Home Phone | | + + + | Preferred Language | Unknown | + + + | Marital Status | Single | + + + | Gnosticism Affiliation | Unknown | + + + [...] Team Providers + +------+ + | Care Model Maker Name | Role | Phone | + +------+ + | No Pcp Per Patient | PCP | Unavailable | + +------+ + Encounter Details +--------+ + + + + | Date | Type | Department | Care Team | Description | +--------+ + + + + | 08/06/ | Procedure | Diagnostic Imaging | | | | 2018 | Pass | Services at [facility] | | | | | | [address] | | | | | | [facility] | | | | | | Mailcode: [address] | | | | | | [place] | | | | | | [place], [place] | | | | | | [address] | | | | | | [phone] | | | +--------+ + + + [...]
--- OUTSIDE RECORDS SUMMARY | ~2017-09-06 | XMS | Encounter Summary ---
Demographics + + + | Address | [address] | | | [place] [address] | + + + | Home Phone [...] Team Providers + +------+ + | Care Molding Supervisor Name | Role | Phone | + [...] | | | Oncology | Malignant | aJss Bowles MD | Srinivasa Cope MD | | | | | neoplasm of | [place] | [address] [facility] | | | | | upper lobe, | A MEDICAL | [facility] | | | | | left | C[address] | [address] [place], | | | | | bronchus or | [address] | [place] | | | | | lung Lung | [place] | [address] | | | | | Ca w/ Brain | [address] | Phone: | | | | | Mets | [place], | [phone] | | | | | Procedures | [place] [address] | Fax: | | | | | Consult, | Phone: | [phone] | | | | | Treat, F/U | [phone] | | | | | | | Fax: | | | | | | | [phone] | | + +--------+ + + + [...] | | | | | | [place], | | | | | | [place] [address] | | | | | | [phone] | | | +--------+ + + + [...]
--- OUTSIDE RECORDS SUMMARY | ~2017-09-06 | XMS | Clinical Summary ---
Demographics + + + | Address | [address] | | | [place] [address] | + + + | Home Phone | | + + + | Preferred Language | Unknown | + + + | Marital Status | Unknown | + + + | Sikh Affiliation | Unknown | + + + | Race | Unknown | + + + | Ethnic Group | Unknown | + + + Author + + + | Author | [facility] | + + + | Organization | [facility] | + + + | Address | Unknown | + + + | Phone | Unavailable | + + + Support + + + + + | Name | Relationship | Address | Phone | + + + + + | Stacy Mcghee | ECON | [address] | | | | | [place] [address] | | + + + + + Care Team Providers + +------+ + | Care Technician Biological Health Name | Role | Phone | + +------+ + PP | Unavailable | + +------+ + Allergies Not on File Current Medications Not on file Active Problems Not on file Social History + +-------+ +--------+------+ | Tobacco [...] on file | | + + + Plan of Treatment + + + + + | Health Maintenance | Due Date | Last Done | Comments | + + + + + | Vaccine: | | | | | Dtap/Tdap/Td (1 - | 4 | | | | Tdap) | | | | + + + + + | Colon Cancer | | | | | Screening | 5 | | | | (Colonoscopy) | | | | + + + + + | Vaccine: Zoster (#1) | | | | | | 5 | | | + + + + + | Vaccine: | | | | | Pneumococcal 65+ | 0 | | | | Low/Medium Risk (1 | | | | | of 2 - PCV13) | | | | + + + + + | Vaccine: Influenza | | | | | (Season Ended) | 8 | | | + + + + + Results Not on filefrom Last 3 Months Insurance + +--------+ +------+ + + | Payer | Benefi | Subscriber | Type | Phone | Address | | | t Plan | ID | | | | | | / | | | | | | | Group | | | | | + +--------+ +------+ + + | [place] | [phone] | | [phone] [employer] [id number] | | ADMINISTRATION | CHOICE | | | [phone] [place] | | | | | | | [address] [place] | | | | | | | [phone] | + +--------+ +------+ + + + +--------+ +--------+ + + | Guarantor Name | Accoun | Relation to | Date | Phone | Billing Address | | | t Type | Patient | of | | | | | | | | | | + +--------+ +--------+ + + | LEIA MCGHEE | Vetera | Self | [birth year] | Home: | [address] | | | ns | | [phone] | [phone] | [place] [address] | | | [place] | | | [phone] | | | | strati | | | | | | | on | | | | | + +--------+ +--------+ + +"
--- OUTSIDE RECORDS SUMMARY | ~2017-09-06 | XMS | Encounter Summary ---
Demographics + + + | Address | [address] | | | [place] [address] | + + + | Home Phone | | + + + | Preferred Language | Unknown | + + + | Marital Status | Single | + + + | Jainism Affiliation | Unknown | + + + | Race | White | + + + | Ethnic Group | Not or | + + + Author + + + | Author | [facility] | + + + | Organization | [facility] | + + + | Address | Unknown | + + + | Phone | Unavailable | + + + Support + + +---------+ + | Name | Relationship | Address | Phone | + + +---------+ + | Stacy Mcghee | ECON | Unknown | | + + +---------+ + Care Team Providers + +------+ + | Care Captain Of Guards Name | Role | Phone | + +------+ + | No Pcp Per Patient | PCP | Unavailable | + +------+ + Reason for Visit + + + | Reason | Comments | + + + | RT Treatment Summary | | + + + Encounter Details +--------+ + + + + | Date | Type | Department | Care Team | Description | +--------+ + + + + | 09/05/ | Documentati | Radiation Oncology | Mis Jarrett | RT Treatment Summary | | 2018 | on | at [facility] [address] | [address] | | | | | [address] | [address] Pras[address] [place], | | | | | Road [place] | [place] [address] | | | | | [place], | [phone] | | | | | [place] [address] | | | | | | [phone] | | | +--------+ + + + [...]
--- OUTSIDE RECORDS SUMMARY | ~2017-09-06 | XMS | Clinical Summary ---
Demographics + + + | Address | [address] | | | [place] [address] | + + + | Home Phone | | + + + | Preferred Language | Unknown | + + + | Marital Status | Unknown | + + + | Uatsdin Affiliation | Unknown | + + + | Race | Unknown | + + + | Ethnic Group | Unknown | + + + Author + + + | Author | [facility] [employer] [facility] | + + + | Organization | [facility] [employer] [facility] | + + + | Address | Unknown | + + + | Phone | Unavailable | + + + Support + + + + + | Name | Relationship | Address | Phone | + + + + + | Stacy Mcghee | ECON | [address] | | | | | [place] [address] | | + + + + + Care Team Providers + +------+ + | Care Job Press Operator Name | Role | Phone | + [...] | | | | | | | [address] | + +--------+ +------+ + + + [...] | [birth year] | Home: | [address] | | | ns | | 1946 | [phone] | [place] [address] | | | [place] | | | [address] | | | | strati | | | | | | | on | | | | | + +--------+ +--------+ + +"
--- OUTSIDE RECORDS SUMMARY | ~2017-09-06 | XMS | Encounter Summary ---
Demographics + + + | Address | [address] | | | [place] [address] | + + + | Home Phone | | + + + | Preferred Language | Unknown | + + + | Marital Status | Single | + + + | Worship Affiliation | Unknown | + + + | Race | White | + + + | Ethnic Group | Not or | + + + Author + + + | Author | [facility] | + + + | Organization | [facility] | + + + | Address | Unknown | + + + | Phone | Unavailable | + + + Support + + +---------+ + | Name | Relationship | Address | Phone | + + +---------+ + | Stacy Mcghee | ECON | Unknown | | + + +---------+ + Care Team Providers + +------+ + | Care Coil Placer Name | Role | Phone | + [...] [address] | | | | | ([facility]) | [address] | [facility] | | | | | Procedures | [address] | Mailcode: | | | | | MRI BRAIN | [place], [place] | [address] | | | | | RADIATION | [address] | [place] | | | | | THERAPY | Phone: | Research | | | | | [address] | [phone] | [place] | | | | | CONTRAST | Fax: | [place], [place] | | | | | | [phone] | [address] | | | | | | | Phone: | | | | | | | [phone] | | | | | | | Fax: | | | | | | | [phone] | +--------+--------+ + + + + PROC [...] [address] | | | | | ([facility]) | Kulwant | [facility] | | | | | Procedures | [address] | Mailcode: | | | | | SIMULATION | [place], [place] | [address] | | | | | IMAGING | [address] [facility] | | | | | | Phone: | Hospital | | | | | | [phone] | [facility] | | | | | | Fax: | [place], [place] | | | | | | [phone] | [address] | | | | | | | Phone: | | | | | | | [phone] | | | | | | | Fax: | | | | | | | [phone] | +--------+--------+ + + + + Encounter Details +--------+ + + + + | Date | Type | Department | Care Team | Description | +--------+ + + + + | 08/06/ | Health Information Systems Technician | Radiation Oncology | Srinivasa Fregoso, | Brain metastases | | 2018 | | at [facility] [address] | [address] | (HCC) (Primary Dx) | | | | [address] [place] | [facility] | | | | | Annabel Tripathi | [place], [place] | | | | | [place], | [address] | | | | | [place] [address] | [phone] | | | | | [phone] | | | +--------+ + + + [...] Laboratory | + + + | | [facility] RADIOLOGY VOICE RECOGNITION | + + [...]
--- OUTSIDE RECORDS SUMMARY | ~2017-09-06 | XMS | Clinical Summary ---
Demographics + + + | Address | [address] | | | [place] [address] | + + + | Home Phone | | + + + | Preferred Language | Unknown | + + + | Marital Status | Single | + + + | Holiness Affiliation | Unknown | + + + | Race | Unknown | + + + | Ethnic Group | Unknown | + + + Author + + + | Author | [facility] | | | and [place] | + + + | Organization | [facility] | | | and [...] Team Providers + +------+ + | Care Occupational Work Experience Teacher Name | Role | Phone | + +------+ + | Unknown, Doctor | PP | Unavailable | + +------+ + Allergies Not on File Current Medications Not on file Active Problems Not on file Encounters +--------+ + + + + | Date | Type | Specialty | Care Team | Description | +--------+ + + + + | 07/16/ | Ancillary | | Provider, | | | 2018 | Orders | | MD Tavia | | +--------+ + + + + | 07/15/ | Ancillary | | Tatyana Aguila FNP | Mass of upper lobe | | 2017 | Orders | | | of right lung | +--------+ + + + + | 07/15/ | Ancillary | | Tatyana Aguila FNP | | | 2018 | Orders | | | | +--------+ + + + + | 07/05/ | Imaging | | Provider, | | | 2017 | Exam | | MD Tavia | | +--------+ + + + + | 07/05/ | Imaging | | Provider, | | | 2018 | Exam | | MD Tavia | | +--------+ + + + + [...] | + + + + + | Hepatitis C | | | | | Screening | 5 | | | + + + + + | Vaccine: | | | | | Dtap/Tdap/Td (1 - | 4 | | | | Tdap) | | | | + + + + + | COLON CANCER | | | | | SCREENING | 5 | | | | (COLONOSCOPY EVERY | | | | | 10 YEARS 50-75) | | | | + + + [...] Vaccine: Influenza | | | | | (#1) | 7 | | | + + + + + Results CT Head w wo Contrast (07/05/2017 1315) + + + | Specimen | Performing Laboratory | + + + | | [facility] | + + + + + | Narrative | + + | External films for comparison only - no result from [facility]. | + + XR Chest PA or AP (07/05/2017 1220) + + + | Specimen | Performing Laboratory | + + + | | [facility] | + + + + + | Narrative | + + | External films for comparison only - no result from [facility]. | + + from Last 3 Months Insurance + +--------+ +--------+ +---------+ | Payer | Benefi | Subscriber | Type | Phone | Address | | | t Plan | ID | | | | | | / | | | | | | | Group | | | | | + +--------+ +--------+ +---------+ | [employer]MIN | [employer] | | Indemn | | | | | NS | | ity | | | | | ADMIN | | | | | | | OTHER | | | | | + +--------+ +--------+ +---------+ | MEDICARE | MEDICA | xxxxxxxxxx | Medica | +1- | | | | RE | | re | [id number] | | | | PART A | | | | | | | AND B | | | | | + +--------+ +--------+ +---------+ | HEALTHNET FEDERAL | HEALTH | | Indemn | | | | SERVICES | NET | | ity | | | | | [place] | | | | | | | NS | | | | | | | CHOICE | | | | | + +--------+ +--------+ +---------+ + +--------+ +--------+ + + | Guarantor Name | Accoun | Relation to | Date | Phone | Billing Address | | | t Type | Patient | of | | | | | | | | | | + +--------+ +--------+ + + | LEIA MCGHEE | Person | Self | [birth year] | Home: | [address] | | | al/Fam | | 1946 | [phone] | [place] [address] | | | marito | | | [phone] | | + +--------+ +--------+ + +"
--- OUTSIDE RECORDS SUMMARY | ~2017-09-06 | XMS | Encounter Summary ---
Demographics + + + | Address | [address] | | | [place] [address] | + + + | Home Phone | | + + + | Preferred Language | Unknown | + + + | Marital Status | Single | + + + | Tenriism Affiliation | Unknown | + + + | Race | White | + + + | Ethnic Group | Not or | + + + Author + + + | Author | [facility] | + + + | Organization | [facility] | + + + | Address | Unknown | + + + | Phone | Unavailable | + + + Support + + +---------+ + | Name | Relationship | Address | Phone | + + +---------+ + | Stacy Mcghee | ECON | Unknown | | + + +---------+ + Care Team Providers + +------+ + | Care Motorcycle Police Officer Name | Role | Phone | + [...] | | | | neoplasm of | [place] | [address] | | | | | upper lobe, | A MEDICAL | [facility] | | | | | left | CENTER [address] | [address] [place], | | | | | bronchus or | [address] | [place] | | | | | lung Lung | [place] | [address] | | | | | Ca w/ Brain | [address] | Phone: | | | | | Mets | [place], | [phone] | | | | | Procedures | [place] [address] | Fax: | | | | | Consult, | Phone: | [phone] | | | | | Treat, F/U | [phone] | | | | | | | Fax: | | | | | | | [phone] | | + +--------+ + + + + Encounter Details +--------+ + + + + | Date | Type | Department | Care Team | Description | +--------+ + + + + | 08/22/ | Hospital | Radiation Oncology | | | | 2018 | Encounter | at [facility] [address] | | | | | | [address] | | | | | | Annabel Tripathi | | | | | | [place], | | | | | | [place] [address] | | | | | | [phone] | | | +--------+ + + + [...]
--- OUTSIDE RECORDS SUMMARY | ~2017-09-06 | XMS | Encounter Summary ---
Demographics + + + | Address | [address] | | | [place] [address] | + + + | Home Phone [...] + + + | Author | [facility] | + + + | Organization | [facility] | + + + | Address | Unknown | + + + | Phone | Unavailable | + + + Support + + +---------+ + | Name | Relationship | Address | Phone | + + +---------+ + | Stacy Mcghee | ECON | Unknown | | + + +---------+ + Care Team Providers + +------+ + | Care Motion Picture Narrator Name | Role | Phone | + +------+ + | No Pcp Per Patient | PCP | Unavailable | + +------+ + Reason for Visit + + + | Reason | Comments | + + + | Medication | | | management | | + + + Encounter Details +--------+ + + + + | Date | Type | Department | Care Team | Description | +--------+ + + + + | 08/30/ | Clinical | Radiation Oncology | [facility] [address] | Medication | | 2018 | Support | at [facility] [address] | [address] | management | | | Staff | [address] | [address] [place], [place] | | | | | Annabel Tripathi | [address] | | | | | [place], | | | | | | [place] [address] | | | | | | [phone] | | | +--------+ + + + [...] + + as of this encounter Progress Notes Micky Carter RN - 08/30/2017 10:50 AM PDTSpoke with patient today. He reports he is feeling good; he denies any headaches, n/v or any other neuro symptoms. Pt is currently taking 4mg of oral dexamethasone; pt was told to continue this dose until h e he's from our clinic for any dex taper instructions. Pt understood and agreed to plan. i n this encounter Plan of Treatment Not on fileas of this encounter Visit Diagnoses + + | Diagnosis | + + | Encounter for radiotherapy - Primary | + + | Radiotherapy | + +"
--- OUTSIDE RECORDS SUMMARY | ~2017-09-06 | XMS | Encounter Summary ---
Demographics + + + | Address | [address] | | | [place] [address] | + + + | Home Phone [...] Team Providers + +------+ + | Care Tire Spotter Name | Role | Phone | + [...] [address] | | | | | ([facility]) | [address] | [facility] | | | | | Procedures | [facility] | Mailcode: | | | | | MRI BRAIN | [place], [place] | [address] | | | | | RADIATION | [address] | [place] | | | | | THERAPY | Phone: | Research | | | | | [address] | [phone] | Center | | | | | CONTRAST | Fax: | [place], [place] | | | | | | [phone] | [address] | | | | | | | Phone: | | | | | | | [phone] | | | | | | | Fax: | | | | | | | [phone] | +--------+--------+ + + + + Diagnostic [...] [address] | | | | | ([facility]) | Kulwant | [facility] | | | | | Procedures | [facility] | Mailcode: | | | | | MRI BRAIN | [place], [place] | [address] | | | | | RADIATION | [address] | [place] | | | | | THERAPY | Phone: | Research | | | | | [address] | [phone] | [place] | | | | | CONTRAST | Fax: | [place], [place] | | | | | | [phone] | [address] | | | | | | | Phone: | | | | | | | [phone] | | | | | | | Fax: | | | | | | | [phone] | +--------+--------+ + + + + Reason [...] | | | (HCC) | [address] | [facility] | | | | | Procedures | [facility] | Mailcode: | | | | | MRI BRAIN | [place], [place] | [address] | | | | | RADIATION | [address] | [place] | | | | | THERAPY | Phone: | Research | | | | | [address] | [phone] | Center | | | | | CONTRAST | Fax: | [place], [place] | | | | | | [phone] | [address] | | | | | | | Phone: | | | | | | | [phone] | | | | | | | Fax: | | | | | | | [phone] | +--------+--------+ + + + + Encounter Details +--------+ + + + + | Date | Type | Department | Care Team | Description | +--------+ + + + + | 08/12/ | Hospital | Diagnostic Imaging | Srinivasa Fregoso, | | | 2018 | Encounter | Services at [facility] | [address] | | | | | [address] | [facility] | | | | | [facility] | [place], [place] | | | | | Mailcode: [address] | [address] | | | | | [facility] | [phone] | | | | | [place], [place] | | | | | | [address] | | | | | | [phone] | | | +--------+ + + + [...] | + + + | Blood | [facility] TESTS [address] | | | [place] [address] | + + + in this encounter [...]
--- OUTSIDE RECORDS SUMMARY | ~2017-09-06 | XMS | Encounter Summary ---
Demographics + + + | Address | [address] | | | [place] [address] | + + + | Home Phone | | + + + | Preferred Language | Unknown | + + + | Marital Status | Single | + + + | Baptist Affiliation | Unknown | + + + | Race | White | + + + | Ethnic Group | Not or | + + + Author + + + | Author | [facility] | + + + | Organization | [facility] | + + + | Address | Unknown | + + + | Phone | Unavailable | + + + Support + + +---------+ + | Name | Relationship | Address | Phone | + + +---------+ + | Stacy Mcghee | ECON | Unknown | | + + +---------+ + Care Team Providers + +------+ + | Care Software Project Engineer Name | Role | Phone | + +------+ + | No Pcp Per Patient | PCP | Unavailable | + +------+ + Reason for Visit + + + | Reason | Comments | + + + | On Treatment Visit | | | (OTV) | | + + + Encounter Details +--------+---------+ + + + | Date | Type | Department | Care Team | Description | +--------+---------+ + + + | 08/26/ | Office | Radiation Oncology | Yumiko Calderón | Encounter for | | 2017 | Visit | at [facility] [address] | [place], [address] [address] | radiotherapy | | | | [address] | [address] | (Primary Dx) | | | | Ann[address] Tripathi | [place], [place] | | | | | [place], | [address] | | | | | [place] [address] | [phone] | | | | | [phone] | | | +--------+---------+ + + + [...] + + + + | Temperature | - | - | + + + + | Respiratory [...] + + in this encounter Progress Notes Yumiko Calderón MD - 08/26/2017 10:50 AM PDTFormatting of this note may be different from the original. Radiation Oncology - On Treatment Visit Note/SBRT Clinical Management Note ID: [id number] y.o. 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 Plan for SBRT 3-5fx to re section cavities and SRS to gross disease in R anterior frontal and R temporal lobes. He is here today during treatment for an on treatment visit. SUBJECTIVE: Tolerating treatment well. No HAs or nausea. No focal neuro sx. OBJECTIVE: Vital Signs: BP 83/59 | Pulse 82 | RR 18 | Wt 70.3 kg (155 lb) | SpO2 96[Room Air[% Pain S core: 0 Wt Readings from Last 3 Encounters: 08/26/17 70.3 kg (155 lb) 08/21/17 70.3 kg (155 lb) Emir Mcghee's mode of transportation is ambulatory. Skin: no erythema. ASSESSMENT/PLAN: Will finish SBRT this Saturday. [facility], will consult with Drs. Fregoso/Kolby r egarding a taper schedule. Repeat brain MRI in 3 months, follow-up with Dr. Fregoso after the MRI. Cont RT. MD Clifton JIMENES, [place], [place] - 08/26/2017 10:50 AM PDTPt presents for an OTV. Pt is AOX3, walks with a steady gait. Vital signs as noted in EPIC. in this encounter Plan of Treatment Not on fileas of this encounter Visit Diagnoses + + | Diagnosis | + + | Encounter for radiotherapy - Primary | + + | Radiotherapy | + +"
--- OUTSIDE RECORDS SUMMARY | ~2017-09-06 | XMS | Clinical Summary ---
Demographics + + + | Address | [address] | | | [place] [address] | + + + | Home Phone | | + + + | Preferred Language | Unknown | + + + | Marital Status | Unknown | + + + | Sikhism Affiliation | Unknown | + + + | Race | Unknown | + + + | Ethnic Group | Unknown | + + + Author + + + | Author | [facility] | + + + | Organization | [facility] | + + + | Address | Unknown | + + + | Phone | Unavailable | + + + Support + + + + + | Name | Relationship | Address | Phone | + + + + + | Stacy Mcghee | ECON | [address] | | | | | [place] [address] | | + + + + + Care Team Providers + +------+ + | Care Field Coil Winder Name | Role | Phone | + [...] | | | | | | | [address] | + +--------+ +------+ + + + [...] | [birth year] | Home: | [address] | | | ns | | 1946 | [phone] | [place] [address] | | | [place] | | | [address] | | | | strati | | | | | | | on | | | | | + +--------+ +--------+ + +"
--- OUTSIDE RECORDS SUMMARY | ~2017-09-06 | XMS | Clinical Summary ---
Demographics + + + | Address | [address] | | | [place] [address] | + + + | Home Phone [...] Team Providers + +------+ + | Care Account Specialist Name | Role | Phone | + +------+ + | No Pcp Per Patient | PP | Unavailable | + +------+ + Source Comments RAPHAEL is fully live on both [facility] Ambulatory and [facility] InPatient.[facility] Allergies No Known Allergies Current [...] + + + + | 08/06/ | Prime Minister | | Srinivasa Fregoso, | Brain metastases [...] | + + + | Blood | [facility] [place] [facility] TESTS [address] | | | [place] [address] | + + + SPECIMEN ROUTING (07/22/2017 12:00 PM) + + + | Specimen | Performing Laboratory | + + + | Slide-Block | [facility] [address] | | | [address] [place] [address] | + + + FISH, MOLECULAR PROBE, [...] | | | made by the clinical cementer machine applicator. This test | | | | was developed and its performance | | | | characteristics determined by the [facility] | | | | [employer]. It has | | | | not [...] | | | (CLIA). The [facility] [employer] | | | | Laboratories are fully licensed by the | | | | [facility] under CLIA and are | | | | accredited by the [employer] | | | | Pathologists (CAP). Laboratory | | | | Director: Duke Gore M.D., | | | | Ph.D Electronically reviewed and signed | | | | by:Kalin Sahu, PhD, [facility] | | | | Crochet Beader Clinical Molecular | | | | Geneticist07/30/2017 at 12:14 PM | | | | Reviewed and electronically signed by | | | | ERNESTINE CRUZ MD,[facility]07/30/2017 4:18 PM | | + + + + + + + | Specimen | Performing Laboratory | + + + | Slide-Block | [facility] [address] | | | [address] [place] [address] | + + + GENETRAILS LUNG CANCER PANEL (07/22/2017 12:01 AM) + + + + | Component | Value | Ref Range | + + + + | WIRELESS MEDCARERAILS LUNG | See Interpretation. | | | [...] on an Illumina | | | | [id number]. The minimum detectable mutant | | | [...] the [facility] | | | | [facility]. It has | | | [...] | | | (CLIA). The [facility] | | | | Laboratories are fully licensed by the | | | | state [facility] under CLIA and are | | | | accredited by the [employer] | | | | Pathologists (CAP). Laboratory | | | | Director: Duke Gore M.D., | | | | Ph.D Reviewed and electronically signed by | | | | KEN WORRELL MD3 7:54 AM | | + + + + + + + | Specimen | Performing Laboratory | + + + | Slide-Block | [facility] [address] | | | [address] [place] [address] | + + + NSCLC FISH [place], [...] + + | Slide-Block | [facility] [address] | | | [address] [place] [address] | + + + OUTSIDE LAB - PATHOLOGY (07/22/2017)from Last 3 Months"
--- OUTSIDE RECORDS SUMMARY | ~2017-09-06 | XMS | Encounter Summary ---
Demographics + + + | Address | [address] | | | [place] [address] | + + + | Home Phone | | + + + | Preferred Language | Unknown | + + + | Marital Status | Single | + + + | Anabaptism Affiliation | Unknown | + + + | Race | Unknown | + + + | Ethnic Group | Unknown | + + + Author + + + | Author | [facility] | | | and [place] | + + + | Organization | [facility] | | | [...] Team Providers + +------+ + | Care Relief Mate Name | Role | Phone | + +------+ + PCP | Unavailable | + +------+ + Reason for Referral Diagnostic/Screening (Routine) + +--------+ + + + + | Status | Reason | Specialty | Diagnoses / | Referred By | Referred To | | | | | Procedures | Contact | Contact | + +--------+ + + + + | Pending | | Radiology | Procedures | Provider, | | | Review | | | CT Head w | Historical, | | | | | | wo Contrast | MD [address] | | | | | | | [address] | | | | | | | [place] | | | | | | | [address] | | + +--------+ + + + + Encounter Details +--------+ + + + + | Date | Type | Department | Care Team | Description | +--------+ + + + + | 07/05/ | Imaging | [facility] | Provider, | | | 2018 | Exam | [facility] | [address] | | | | | IMAGING | [address] | | | | | [phone] | [place] [address] | | +--------+ + + + + [...] Not on fileas of this encounter Results CT Head w wo Contrast (07/05/2017 1315) + + + | Specimen | Performing Laboratory | + + + | | [facility] | + + + + + | Narrative | + + | External films for comparison only - no result from [facility]. | + + in this encounter Visit Diagnoses Not on filein this encounter"
--- OUTSIDE RECORDS SUMMARY | ~2017-09-06 | XMS | Encounter Summary ---
Demographics + + + | Address | [address] | | | [place] [address] | + + + | Home Phone | | + + + | Preferred Language | Unknown | + + + | Marital Status | Single | + + + | Roman Catholic Affiliation | Unknown | + + + | Race | White | + + + | Ethnic Group | Not or | + + + Author + + + | Author | [facility] | + + + | Organization | [facility] | + + + | Address | Unknown | + + + | Phone | Unavailable | + + + Support + + +---------+ + | Name | Relationship | Address | Phone | + + +---------+ + | Stacy Mcghee | ECON | Unknown | | + + +---------+ + Care Team Providers + +------+ + | Care Cover Seamer Name | Role | Phone | + [...] | | | | neoplasm of | [place] | [address] [facility] | | | | | upper lobe, | A MEDICAL | [facility] | | | | | left | CENTER [address] | [address] [place], | | | | | bronchus or | [address] | [place] | | | | | lung Lung | [place] | [address] | | | | | Ca w/ Brain | [address] | Phone: | | | | | Mets | [place], | [phone] | | | | | Procedures | [place] [address] | Fax: | | | | | Consult, | Phone: | [phone] | | | | | Treat, F/U | [phone] | | | | | | | Fax: | | | | | | | [phone] | | + +--------+ + + + + Encounter Details +--------+ + + + + | Date | Type | Department | Care Team | Description | +--------+ + + + + | 08/19/ | Hospital | Radiation Oncology | | | | 2018 | Encounter | at [facility] [address] | | | | | | [address] | | | | | | [address] | | | | | | [place], | | | | | | [place] [address] | | | | | | [phone] | | | +--------+ + + + [...]
--- OUTSIDE RECORDS SUMMARY | ~2017-09-06 | XMS | Encounter Summary ---
Demographics + + + | Address | [address] | | | [place] [address] | + + + | Home Phone [...] Team Providers + +------+ + | Care Contour Stitcher Name | Role | Phone | + [...] | | | | | ([facility]) | [place] | [facility] | | | | | Procedures | [facility] | Mailcode: | | | | | SIMULATION | [facility] [place] | [address] | | | | | IMAGING | [phone] [facility] | | | | | | Phone: | [facility] | | | | | | [phone] | [facility] | | | | | | Fax: | [place], [place] | | | | | | [phone] | [address] | | | | | | | Phone: | | | | | | | [phone] | | | | | | | Fax: | | | | | | | [phone] | +--------+--------+ + + + + PROC [...] | | | | | ([facility]) | [place] | [facility] | | | | | Procedures | [facility] | Mailcode: | | | | | SIMULATION | [place], [place] | [address] | | | | | IMAGING | [phone] [facility] | | | | | | Phone: | Hospital | | | | | | [phone] | [facility] | | | | | | Fax: | [place], [place] | | | | | | [phone] | [address] | | | | | | | Phone: | | | | | | | [phone] | | | | | | | Fax: | | | | | | | [phone] | +--------+--------+ + + + + Reason [...] | | | | | ([facility]) | [place] | [facility] | | | | | Procedures | [facility] | Mailcode: | | | | | SIMULATION | [place], [place] | [address] | | | | | IMAGING | [address] [facility] | | | | | | Phone: | Hospital | | | | | | [phone] | [facility] | | | | | | Fax: | [place], [place] | | | | | | [phone] | [address] | | | | | | | Phone: | | | | | | | [phone] | | | | | | | Fax: | | | | | | | [phone] | +--------+--------+ + + + + Encounter Details +--------+ + + + + | Date | Type | Department | Care Team | Description | +--------+ + + + + | 08/13/ | Hospital | Radiation Oncology | | | | 2018 | Encounter | at [facility] [address] | | | | | | [facility] [facility] | | | | | | [address] | | | | | | [place], | | | | | | [place] [address] | | | | | | [phone] | | | +--------+ + + + [...]
--- OUTSIDE RECORDS SUMMARY | ~2017-09-06 | XMS | Encounter Summary ---
Demographics + + + | Address | [address] | | | [place] [address] | + + + | Home Phone | | + + + | Preferred Language | Unknown | + + + | Marital Status | Single | + + + | Uatsdin Affiliation | Unknown | + + + | Race | White | + + + | Ethnic Group | Not or | + + + Author + + + | Author | [facility] | + + + | Organization | [facility] | + + + | Address | Unknown | + + + | Phone | Unavailable | + + + Support + + +---------+ + | Name | Relationship | Address | Phone | + + +---------+ + | Stacy Mcghee | ECON | Unknown | | + + +---------+ + Care Team Providers + +------+ + | Care Prepress Specialist Name | Role | Phone | [...] | Staff | [address] | [address] [place], [place] | | | | | [address] | [address] | | | | | [place], | | | | | | [place] [address] | | | | | | [phone] | | | +--------+ + + + [...]
--- OUTSIDE RECORDS SUMMARY | ~2017-09-06 | XMS | Encounter Summary ---
Demographics + + + | Address | [address] | | | [place] [address] | + + + | Home Phone | | + + + | Preferred Language | Unknown | + + + | Marital Status | Single | + + + | Hindu Affiliation | Unknown | + + + | Race | White | + + + | Ethnic Group | Not or | + + + Author + + + | Author | [facility] | + + + | Organization | [facility] | + + + | Address | Unknown | + + + | Phone | Unavailable | + + + Support + + +---------+ + | Name | Relationship | Address | Phone | + + +---------+ + | Stacy Mcghee | ECON | Unknown | | + + +---------+ + Care Team Providers + +------+ + | Care Soda Dialyzer Name | Role | Phone | + [...] | | | | neoplasm of | [place] | [address] [facility] | | | | | upper lobe, | A MEDICAL | [facility] | | | | | left | CENTER [address] | [address] [place], | | | | | bronchus or | [address] | [place] | | | | | lung Lung | [place] | [address] | | | | | Ca w/ Brain | [address] | Phone: | | | | | Mets | [place], | [phone] | | | | | Procedures | [place] [address] | Fax: | | | | | Consult, | Phone: | [phone] | | | | | Treat, F/U | [phone] | | | | | | | Fax: | | | | | | | [phone] | | + +--------+ + + + [...] | | | | | | [place], | | | | | | [place] [address] | | | | | | [phone] | | | +--------+ + + + [...]
--- OUTSIDE RECORDS SUMMARY | ~2017-09-06 | XMS | Encounter Summary ---
Demographics + + + | Address | [address] | | | [place] [address] | + + + | Home Phone | | + + + | Preferred Language | Unknown | + + + | Marital Status | Single | + + + | Nondenominational Affiliation | Unknown | + + + | Race | Unknown | + + + | Ethnic Group | Unknown | + + + Author + + + | Author | [facility] | | | and [place] | + + + | Organization | [facility] | | | and [...] Team Providers + +------+ + | Care Street Sweeper Operator Name | Role | Phone | + +------+ + PCP | Unavailable | + +------+ + Encounter Details +--------+ + + + + | Date | Type | Department | Care Team | Description | +--------+ + + + + | 07/05/ | Imaging | [facility] | Provider, | | | 2018 | Exam | [facility] EXTERNAL | [address] | | | | | IMAGING | [address] | | | | | [phone] | [place] [address] | | +--------+ + + + + [...] Not on fileas of this encounter Results XR Chest PA or AP (07/05/2017 1220) + + + | Specimen | Performing Laboratory | + + + | | [facility] | + + + + + | Narrative | + + | External films for comparison only - no result from [place]. | + + in this encounter Visit Diagnoses Not on filein this encounter"
--- OUTSIDE RECORDS SUMMARY | ~2017-09-06 | XMS | Encounter Summary ---
Demographics + + + | Address | [address] | | | [place] [address] | + + + | Home Phone | | + + + | Preferred Language | Unknown | + + + | Marital Status | Single | + + + | Congregational Affiliation | Unknown | + + + | Race | White | + + + | Ethnic Group | Not or | + + + Author + + + | Author | [facility] | + + + | Organization | [facility] | + + + | Address | Unknown | + + + | Phone | Unavailable | + + + Support + + +---------+ + | Name | Relationship | Address | Phone | + + +---------+ + | Stacy Mcghee | ECON | Unknown | | + + +---------+ + Care Team Providers + +------+ + | Care Director Of Labor And Delivery Name | Role | Phone | + [...] | | | [address] | [place], [place] | | | | | [address] | [address] | | | | | [place], | | | | | | [place] [address] | | | | | | [phone] | | | +--------+ + + + [...]
--- OUTSIDE RECORDS SUMMARY | ~2017-09-06 | XMS | Encounter Summary ---
Demographics + + + | Address | [address] | | | [place] [address] | + + + | Home Phone | | + + + | Preferred Language | Unknown | + + + | Marital Status | Single | + + + | Muslim Affiliation | Unknown | + + + [...] Team Providers + +------+ + | Care Environmental Health Physician Name | Role | Phone | + +------+ + | No Pcp Per Patient | PCP | Unavailable | + +------+ + Encounter Details +--------+ + + + + | Date | Type | Department | Care Team | Description | +--------+ + + + + | 08/06/ | Procedure | Diagnostic Imaging | | | | 2018 | Pass | Services at [facility] | | | | | | [address] | | | | | | [facility] | | | | | | Mailcode: [address] | | | | | | [place] | | | | | | [place], [place] | | | | | | [address] | | | | | | [phone] | | | +--------+ + + + [...]
--- OUTSIDE RECORDS SUMMARY | ~2017-09-06 | XMS | Encounter Summary ---
Demographics + + + | Address | [address] | | | [place] [address] | + + + | Home Phone | | + + + | Preferred Language | Unknown | + + + | Marital Status | Single | + + + | Mandaeism Affiliation | Unknown | + + + | Race | Unknown | + + + | Ethnic Group | Unknown | + + + Author + + + | Author | [facility] | | | and [place] | + + + | Organization | [facility] | | | [...] Team Providers + +------+ + | Care Exploitation Analyst Name | Role | Phone | + [...] | | | Mass of | Tatyana, BAIT PAINTER | [place] | | | | | upper lobe | [address] [facility] [place] | | | | | of right | [address] | MEDICAL | | | | | lung | [address] [place] | CENTER [address] | | | | | Procedures | [place] | [place] | | | | | PET CT Skull | [address] | [place], | | | | | Base To Mid | Phone: | [place] [address] | | | | | Thigh | [phone] | Phone: | | | | | | Fax: | [phone] | | | | | | [phone] | Fax: | | | | | | | [phone] | + +--------+ + + + + Encounter Details +--------+ + + + + | Date | Type | Department | Care Team | Description | +--------+ + + + + | 07/15/ | Ancillary | [facility] | Tatyana Aguila FNP | Mass of upper lobe | | 2018 | Orders | MED CTR XRAY [address] | [address] | of right lung | | | | [place] | [place] | | | | | [place] [address] | [address] | | | | | [phone] | | | +--------+ + + + [...]
--- OUTSIDE RECORDS SUMMARY | ~2017-09-06 | XMS | Encounter Summary ---
Demographics + + + | Address | [address] | | | [place] [address] | + + + | Home Phone | | + + + | Preferred Language | Unknown | + + + | Marital Status | Single | + + + | Judaism Affiliation | Unknown | + + + | Race | White | + + + | Ethnic Group | Not or | + + + Author + + + | Author | [facility] | + + + | Organization | [facility] | + + + | Address | Unknown | + + + | Phone | Unavailable | + + + Support + + +---------+ + | Name | Relationship | Address | Phone | + + +---------+ + | Stacy Mcghee | ECON | Unknown | | + + +---------+ + Care Team Providers + +------+ + | Care Flight Readiness Technician Name | Role | Phone | + +------+ + | No Pcp Per Patient | PCP | Unavailable | + +------+ + Reason for Visit + + + | Reason | Comments | + + + | Consultation | | + + + Consultation (Routine) + +--------+ + + + [...] | | | | neoplasm of | [place] | [address] [facility] | | | | | upper lobe, | A MEDICAL | [facility] | | | | | left | CENTER [address] | [address] [place], | | | | | bronchus or | [address] | [place] | | | | | lung Lung | [place] | [address] | | | | | Ca w/ Brain | [address] | Phone: | | | | | Mets | [place], | [phone] | | | | | Procedures | [place] [address] | Fax: | | | | | Consult, | Phone: | [phone] | | | | | Treat, F/U | [phone] | | | | | | | Fax: | | | | | | | [phone] | | + +--------+ + + + + Encounter Details +--------+---------+ + + + | Date | Type | Department | Care Team | Description | +--------+---------+ + + + | 08/13/ | Office | Radiation Oncology | Srinivasa Fregoso, | Brain metastases | | 2018 | Visit | at [facility] [address] | [address] | (HCC) (Primary Dx) | | | | [address] | [facility] [address] | | | | | [address] | [place], [place] | | | | | [place], | [address] | | | | | [place] | [phone] | | | | | [phone] | | | +--------+---------+ + + + [...] + + + | Blood Pressure | 113/72 | 08/13/2017 10:02 AM PDT | + + + + | Pulse | 90 | 08/13/2017 10:02 AM PDT | + + + + | Temperature | 37 C (98.6 F) | 08/13/2017 10:02 AM PDT | + + + + | Respiratory Rate | 12 | 08/13/2017 10:02 AM PDT | + + + + | Oxygen Saturation | 98% | 08/13/2017 10:02 AM PDT | + + + + | Inhaled Oxygen | - | - | | Concentration | | | + + + + | Weight | - | - | + + + + | Height | - | - | + + + + | Body Mass Index | - | - | + + + + in this encounter Progress Notes Rio Bray MA - 08/13/2017 10:00 AM PDTPt here for a consultation visit with Dr. Joby english regarding radiation treatment options. Pt alert, oriented, and wheelchair with a steady g ait Pt oriented to clinic and reviewed the Introduction to the [facility] Radiation Oncology Departme nt pt information handout. Pt verbalizes understanding. 10 minutes was spent in face to face discussion and teaching with the patient. Mis Mondragon - 08/13/2017 10:00 AM PDTFormatting of this note may be different from sandie strange. RADIATION ONCOLOGY CONSULTATION [facility] ID: [id number] Requesting Physician: Dr. 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 HPI: The patient initially presented 2 months ago (June 2017) when he experienced spontaneous "jumping" in his L leg. Episodes lasted a few minutes and resolved on their own. However, the episodes became more severe and frequent. He saw his PCP but was not having symptoms a t that time so no workup was done. Simultaneously he developed gradual progressive weakness in his L leg. His PCP advised him to go to the ED. 07/05/17 - presented to [place] ED with progressive LLE weakness; imaging revealed lung a nd brain masses; started on Keppra. 07/17/17 - presented to [facility] ED 07/17/17 - MRI Brain: 4 parenchymal masses including 2.3x2.4x2.5cm inferior R cerebellar, 1x 1.2x1cm anterior R middle frontal gyrus, 2.4x2.4x2.7cm R cingulate gyrus, and 3mm anterior R temporal lobe 07/18/17 - CT CAP:4.8cm RUL mass with R hilar and mediastinal LAD 07/19/17 - EBUS: RUL FNA NSCLC, 4R LN FNA NSCLC 07/22/17 - R retrosigmoid/cerebellar craniectomy for resection of mass, R frontal craniotomy for resection of mass with Dr. Olivares; final pathology consistent with metastatic poorly di fferentiated NSCLC likely squamous cell 07/26/17 - PET: RUL mass SUVmax 11.2, mediastinal and R hilar LAD with uptake also and SUVma x 10.3 07/29/17 - lung tumor board: RT to post-op beds 08/12/17 - MRI Brain: R cerebellar and R posterior frontal resection cavities with new nodul arity, untreated lesions include a R frontal 1.5x1.4cm and R temporal 5mm lesions, 2 new 2mm lesions of unclear significance Currently on 500 BID of Keppra. He is not currently on dexamethasone. The patient is being seen today in consultation for consideration of radiotherapy options. He is here today with his daughter. Today, he reports residual weakness of his left side. The strength of his LLE is improving. He has been having difficulty moving his left fingers for the past 2 weeks, but this is imp roving. He is currently staying at the [facility] in [place]. He has been staying th [facility] for a little more than a week. He is a former smoker. Quit smoking 12 years ago. He has an appointment scheduled with a medical oncologist on 08/15/17. PMH: HPLD Seasonal allergies PSH: craniotomy FAMILY HISTORY: Denies FMHx cancer SOCIAL HISTORY: Lives in [place], [place] alone but currently residing at [facility] 1 daughter Retired [employer] Former smoker, 45 years, quit 12 years ago Some beer No IVDU ALLERGIES: No Known Allergies MEDICATIONS: No current outpatient prescriptions on file. No current facility-administered medications for this visit. REVIEW OF SYSTEMS: I personally reviewed the [facility] Radiation Oncology Questionnaire with the patient. It is pos itive for weakness and seizures. Otherwise negative except as noted in the HPI, exam, PMH a nd PSH. PHYSICAL EXAM: Vitals: BP 113/72 | Pulse 90 | Temp 37 C (98.6 F) | RR 12 | SpO2 98% Pain Score: 0 KARNOFSKY: 40% ECOG PERFORMANCE STATUS: 3= Capable of only limited selfcare, confined to bed or chair mor e than 50% of waking hours GEN: Well developed adult man in NAD, appears stated age HEENT: EOMI, PERRL CARDIO: no cyanosis PULM: no accessory muscle use MSK: no edema, -4/5 on L, 5/5 on R, able to manipulate his wheelchair NEURO: Alert and oriented to time/place/situation. CN2-12 intact PSYCH: slightly flat affect but appropriate, mood appropriate LABORATORY: Lab Results Component Value Date CR 0.9 08/12/2017 IMAGIN07/17/17 MRI BRAIN 07/18/17 CT CAP 07/26/17 PET 08/12/17 MRI BRAIN Brain: Right cerebellar and right posterior frontal resection cavities contains subacute bl ood products, with expected surrounding linear enhancement. In addition a linear enhancement , there is new nodular enhancement along the peripheral right cerebellar resection cavity ma rgin which is new from immediate postoperative MRI, as well as nodular enhancement along the anterior and posterior inferior margins of the right frontal resection cavity (series 10 im age 41 and series 11 image 28), both concerning for residual/recurrent tumor. The anterior r ight frontal ring-enhancing metastasis measures 15 x 14 mm, previously 11 x 10 mm on 07/17/19 18, with surrounding vasogenic edema which has slightly increased in extent. Right anterior temporal pole rim-enhancing metastasis measures 5 mm, previously 3 mm on 07/17/2017. Enhancin g 2 mm nodule within the left posterior cingulate gyrus is new (series 12 image 84, series 1 1 image 22). There is a 2 mm focus of enhancement within the right superior frontal gyrus cortex in the region of the craniotomy, not seen previously, of uncertain sig nificance (series 12 image 112).. No evidence of acute infarction. The ventricles are no rmal in size and morphology. Soft tissues and marrow: Unremarkable Face and orbits: Remote right orbital floor fracture is noted. IMPRESSION: Disease progression, with new and increasing nodular enhancement around the right frontal a nd right cerebellar resection cavity margins, as well as enlarging and new additional brain metastases. PATHOLOGY: 07/19/17 EBUS 07/22/17 R CEREBELLAR AND FRONTAL TUMOR PATHOLOGY ASSESSMENT: Emir Mcghee is a 72 y.o. 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 We recommend focal brain radiotherapy to his tumor beds and untreated mets over 5mm in size . We will avoid WBRT for now but can consider this in the future if he develops innumerable mets. We suggest: SBRT 3-5 fractions to his R cerebellar and R posterior frontal resection cavities SRS 20Gy x1 to his R temporal and R anterior frontal mets The risks and benefits of radiation therapy were discussed in detail with the patient. Side effects included but were not limited to fatigue, brain swelling, NV, headache, seizure, we akness, brain necrosis, mental deficits, and secondary malignancy. The patient expressed an understanding of these risks and has agreed to proceed with the proposed treatment. Inform ed consent was obtained. Simulation with mask immobilization to follow today's consultation. MRI to guide treatment planning was completed on 08/12/17. PLAN: 1) sim today 2) SBRT 3-5 fractions to R cerebellar and R posterior frontal resection cavities, SRS to an terior R frontal and R temporal gross disease 3) steroids during treatment, 4mg Dex daily, then taper This patient was seen, examined, and discussed with my attending, Dr. Fregoso who agrees wit h this assessment and plan. MIS [place]DR[place] Dept of Radiation Medicine [facility] [place] Afsaneh Schwarz, am functioning as a scribe for Dr. Srinivasa Fregoso MD, PhD. Associated attestation - Srinivasa Fregoso MD - 08/15/2017 10:18 AM PDTAttending Attestation I personally interviewed the patient, performed the pertinent parts of the physical examina tion and personally formulated the plan with the resident. I agree with the residents docum entation and have documented any additions or exceptions. Srinivasa Fregoso MD, PhD Radiation Medicine in this encounter Plan of Treatment Not on fileas of this encounter Visit Diagnoses + + | Diagnosis | + + | Brain metastases (HCC) - Primary | + + | Secondary malignant neoplasm of brain and spinal cord | + +
--- OUTSIDE RECORDS SUMMARY | ~2017-09-06 | XMS | Encounter Summary ---
Demographics + + + | Address | [address] | | | [place] [address] | + + + | Home Phone | | + + + | Preferred Language | Unknown | + + + | Marital Status | Single | + + + | Buddhist Affiliation | Unknown | + + + | Race | White | + + + | Ethnic Group | Not or | + + + Author + + + | Author | [facility] | + + + | Organization | [facility] | + + + | Address | Unknown | + + + | Phone | Unavailable | + + + Support + + +---------+ + | Name | Relationship | Address | Phone | + + +---------+ + | Stacy Mcghee | ECON | Unknown | | + + +---------+ + Care Team Providers + +------+ + | Care Medicine Aide Name | Role | Phone | + +------+ + | No Pcp Per Patient | PCP | Unavailable | + +------+ + Encounter Details +--------+ + + + + | Date | Type | Department | Care Team | Description | +--------+ + + + + | 07/25/ | Lab | LAB CORE [address] | | | | 2017 | Requisition | [address] | | | | | | Road [place], [place] | | | | | | [address] | | | | | | [phone] | | | +--------+ + + + [...] Not on fileas of this encounter Results SPECIMEN ROUTING (07/22/2017 12:00 PM) + + + | Specimen | Performing Laboratory | + + + | Slide-Block | [facility] [employer] FOR[facility]LY [facility] [address] | | [address] [place] [address] | + + + in this encounter Visit Diagnoses Not on filein this encounter"
--- OUTSIDE RECORDS SUMMARY | ~2017-09-06 | XMS | Clinical Summary ---
Demographics + + + | Address | [address] | | | [place] [address] | + + + | Home Phone [...] + + + | Author | [facility] | | | and [place] | + + + | Organization | [facility] | | | [...] Team Providers + +------+ + | Care Image Archivist Name | Role | Phone | + [...] for comparison only - no result from [place]. | + + XR Chest PA or AP (07/05/2017 1220) + + + | Specimen | Performing Laboratory | + + + | | [facility] | + + + + + | Narrative | + + | External films for comparison only - no result from [place]. | + + from Last 3 Months [...] | [birth year] | Home: | [address] | | | al/Fam | | 1946 | [phone] | [place] [address] | | | marito | | | [phone] | | + +--------+ +--------+ + +"
--- OUTSIDE RECORDS SUMMARY | ~2017-09-06 | XMS | Encounter Summary ---
Demographics + + + | Address | [address] | | | [place] [address] | + + + | Home Phone | | + + + | Preferred Language | Unknown | + + + | Marital Status | Single | + + + | Restoration Affiliation | Unknown | + + + | Race | Unknown | + + + | Ethnic Group | Unknown | + + + Author + + + | Author | [facility] | | | and [place] | + + + | Organization | [facility] | | | [...] Team Providers + +------+ + | Care Bobbin Coil Winder Name | Role | Phone [...] | | | | | | [address] | | | | | | | [place] | | | | | | | [address] | | + +--------+ + + + + Diagnostic/Screening (Routine) + +--------+ + + + + | Status | Reason | Specialty | Diagnoses / | Referred By | Referred To | | | | | Procedures | Contact | Contact | + +--------+ + + + + | Pending | | Radiology | Procedures | Provider, | | | Review | | | CT Chest w | Historical, | | | | | | Contrast | [address] | | | | | | | [address] | | | | | | | [place] | | | | | | | [address] | | + +--------+ + + + + Encounter Details +--------+ + + + + | Date | Type | Department | Care Team | Description | +--------+ + + + + | 07/16/ | Ancillary | [facility] | Provider, | | | 2018 | Orders | [facility] | MD Tavia [address] | | | | | IMAGING | [address] | | | | | [phone] | [place] [address] | | +--------+ + + + + [...] for comparison only - no result from [facility]. | + + XR Chest PA or AP (07/05/2017 1220) + + + | Specimen | Performing Laboratory | + + + | | [facility] | + + + + + | Narrative | + + | External films for comparison only - no result from [facility]. | + + CT Chest w Contrast (07/31/2011914) + + + | Specimen | Performing Laboratory | + + + | | [facility] | + + + + + | Narrative | + + | External films for comparison only - no result from [facility]. | + + in this encounter Visit Diagnoses Not on filein this encounter"
--- OUTSIDE RECORDS SUMMARY | ~2017-09-06 | XMS | Encounter Summary ---
Demographics + + + | Address | [address] | | | [place] [address] | + + + | Home Phone [...] Author + + + | Author | [facility] | + + + | Organization | [facility] | + + + | Address | Unknown | + + + | Phone | Unavailable | + + + Support + + +---------+ + | Name | Relationship | Address | Phone | + + +---------+ + | Stacy Mcghee | ECON | Unknown | | + + +---------+ + Care Team Providers + +------+ + | Care Human Relations Teacher Name | Role | Phone | [...] | | | | neoplasm of | [place] | [address] [facility] | | | | | upper lobe, | A MEDICAL | [facility] | | | | | left | CENTER [address] | [address] [place], | | | | | bronchus or | [address] | [place] | | | | | lung Lung | [place] | [address] | | | | | Ca w/ Brain | [address] | Phone: | | | | | Mets | [place], | [phone] | | | | | Procedures | [place] [address] | Fax: | | | | | Consult, | Phone: | [phone] | | | | | Treat, F/U | [phone] | | | | | | | Fax: | | | | | | | [phone] | | + +--------+ + + + [...] | | | | | | [place], | | | | | | [place] [address] | | | | | | [phone] | | | +--------+ + + + [...]
--- OUTSIDE RECORDS SUMMARY | ~2017-09-06 | XMS | Encounter Summary ---
Demographics + + + | Address | [address] | | | [place] [address] | + + + | Home Phone | | + + + | Preferred Language | Unknown | + + + | Marital Status | Single | + + + | Hinduism Affiliation | Unknown | + + + | Race | White | + + + | Ethnic Group | Not or | + + + Author + + + | Author | [facility] | + + + | Organization | [facility] | + + + | Address | Unknown | + + + | Phone | Unavailable | + + + Support + + +---------+ + | Name | Relationship | Address | Phone | + + +---------+ + | Stacy Mcghee | ECON | Unknown | | + + +---------+ + Care Team Providers + +------+ + | Care Drink Mixer Name | Role | Phone | + [...] Blum | | | | | ([facility]) | [place] | [facility] | | | | | Procedures | [facility] | Mailcode: | | | | | SIMULATION | [facility] [place] | [address] | | | | | IMAGING | [address] [facility] | | | | | | Phone: | [facility] | | | | | | [phone] | [facility] | | | | | | Fax: | [place], [place] | | | | | | [phone] | [address] | | | | | | | Phone: | | | | | | | [phone] | | | | | | | Fax: | | | | | | | [phone] | +--------+--------+ + + + + PROC [...] Blum | | | | | ([facility]) | [address] | [facility] | | | | | Procedures | [facility] | Mailcode: | | | | | SIMULATION | [place], [place] | [address] | | | | | IMAGING | [address] [facility] | | | | | | Phone: | Hospital | | | | | | [phone] | [facility] | | | | | | Fax: | [place], [place] | | | | | | [phone] | [address] | | | | | | | Phone: | | | | | | | [phone] | | | | | | | Fax: | | | | | | | [phone] | +--------+--------+ + + + + Reason [...] Blum | | | | | ([facility]) | [place]ul[address] | [facility] | | | | | Procedures | [facility] | Mailcode: | | | | | SIMULATION | [place], [place] | [address] | | | | | IMAGING | [address] [facility] | | | | | | Phone: | Hospital | | | | | | [phone] | [facility] | | | | | | Fax: | [place], [place] | | | | | | [phone] | [address] | | | | | | | Phone: | | | | | | | [phone] | | | | | | | Fax: | | | | | | | [phone] | +--------+--------+ + + + + Encounter Details +--------+ + + + + | Date | Type | Department | Care Team | Description | +--------+ + + + + | 08/13/ | Hospital | Radiation Oncology | | | | 2018 | Encounter | at [facility] [address] | | | | | | [facility] | | | | | | Annabel Tripathi | | | | | | [place], | | | | | | [place] [address] | | | | | | [phone] | | | +--------+ + + + [...]
--- OUTSIDE RECORDS SUMMARY | ~2017-09-06 | XMS | Encounter Summary ---
Demographics + + + | Address | [address] | | | [place] [address] | + + + | Home Phone | | + + + | Preferred Language | Unknown | + + + | Marital Status | Single | + + + | Yazidism Affiliation | Unknown | + + + [...] Team Providers + +------+ + | Care Processing Talc And Borate Supervisor Name | Role | Phone | [...] | | 2017 | Requisition | [facility] | [place] | | | | | Road [place], [place] | ADMINISTRATION [address] | | | | | [address] | [facility] [place] | | | | | | [facility] | | | | | | [place] [address] | | | | | | [phone] | | | | | | | [...] | + + + | Slide-Block | [facility] [address] | | [address] [place] [address] | + + + FISH, MOLECULAR PROBE, [...] | | | made by the clinical business mail entry clerk. This test | | | | was developed and its performance | | | | characteristics determined by the [facility] | | | | [facility]. It has | | | | not [...] 1988 | | | | (CLIA). The [facility] | | | | Laboratories are fully licensed by the | | | | [facility] under CLIA and are | | | | accredited by the [employer] | | | | Pathologists (CAP). Laboratory | | | | Director: Duke Gore M.D., | | | | Ph.D Electronically reviewed and signed | | | | by:Kalin Sahu, PhD, [facility] | | | | Electrician Helper Clinical Molecular | | | | Geneticist07/30/2017 at 12:14 PM | | | | Reviewed and electronically signed by | | | | ERNESTINE CRUZ MD,[facility]07/30/2017 4:18 PM | | + + + + + + + | Specimen | Performing Laboratory | + + + | Slide-Block | [facility] [address] | | | [address] [place] [address] | + + + [employer] LUNG CANCER PANEL (07/22/2017 12:01 AM) + [...] on an Illumina | | | | [id number]. The minimum detectable mutant | | | [...] | | | characteristics determined by the [facility] | | | | [facility]. It has | | | [...] 1988 | | | | (CLIA). The [facility] | | | | Laboratories are fully licensed by the | | | | state of [place] under CLIA and are | | | | accredited by the [employer] | | | | Pathologists (CAP). Laboratory | | | | Director: Duke Gore M.D., | | | | Ph.D Reviewed and electronically signed by | | | | KEN WORRELL MD08/07/2017 7:54 AM | | + + + + + + + | Specimen | Performing Laboratory | + + + | Slide-Block | [facility] [address] | | | [address] [place] [address] | + + + in this encounter Visit Diagnoses + + | Diagnosis | + + | Encounter for other specified special examinations (CODE) | + +"
--- OUTSIDE RECORDS SUMMARY | ~2017-09-06 | XMS | Encounter Summary ---
Demographics + + + | Address | [address] | | | [place] [address] | + + + | Home Phone [...] Team Providers + +------+ + | Care Reforestation Worker Name | Role | Phone | [...] | | 2018 | Visit | at [facility] [address] | [address] | radiotherapy | | | | Ald[address] | [address] | (Primary Dx) | | | | Annabel Tripathi | [place], [place] | | | | | [place], | [address] | | | | | [place] [address] | [phone] | | | | | [phone] | | | +--------+---------+ + + + [...] 72 y.o. 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 SRINIVASA FREGOSO MD RADIATION ONCOLOGY AT [address] [address] I, Afsaneh Suh, am functioning as a [...]
--- OUTSIDE RECORDS SUMMARY | ~2017-09-06 | XMS | Encounter Summary ---
Demographics + + + | Address | [address] | | | [place] [address] | + + + | Home Phone [...] Author + + + | Author | [facility] | + + + | Organization | [facility] | + + + | Address | Unknown | + + + | Phone | Unavailable | + + + Support + + +---------+ + | Name | Relationship | Address | Phone | + + +---------+ + | Stacy Mcghee | ECON | Unknown | | + + +---------+ + Care Team Providers + +------+ + | Care Dtp Operator Name | Role | Phone | [...] | | 2018 | Visit | at [facility] [address] | [address] | radiotherapy | | | | [address] | [address] | (Primary Dx) | | | | Annabel Tripathi | [place], [place] | | | | | [place], | [address] | | | | | [place] [address] | [phone] | | | | | [phone] | | | +--------+---------+ + + + [...] 72 y.o. 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 SRINIVASA FREGOSO MD RADIATION ONCOLOGY AT [address] [address] I, Afsaneh Suh, am functioning as a [...]
--- OUTSIDE RECORDS SUMMARY | ~2017-09-06 | XMS | Encounter Summary ---
Demographics + + + | Address | [address] | | | [place] [address] | + + + | Home Phone [...] Author + + + | Author | [facility] | + + + | Organization | [facility] | + + + | Address | Unknown | + + + | Phone | Unavailable | + + + Support + + +---------+ + | Name | Relationship | Address | Phone | + + +---------+ + | Stacy Mcghee | ECON | Unknown | | + + +---------+ + Care Team Providers + +------+ + | Care Engine Tester Name | Role | Phone | + [...] | Staff | [address] | [address] [place], [place] | | | | | Road [address] | [address] | | | | | [place], | | | | | | [place] [address] | | | | | | [phone] | | | +--------+ + + + [...] son in law. The patient lives in [place], although he is currently staying at the [facility] in [place]. The patient is here to begin radiation [...]
--- OUTSIDE RECORDS SUMMARY | ~2017-09-06 | XMS | Encounter Summary ---
Demographics + + + | Address | [address] | | | [place] [address] | + + + | Home Phone [...] Author + + + | Author | [facility] | + + + | Organization | [facility] | + + + | Address | Unknown | + + + | Phone | Unavailable | + + + Support + + +---------+ + | Name | Relationship | Address | Phone | + + +---------+ + | Stacy Mcghee | ECON | Unknown | | + + +---------+ + Care Team Providers + +------+ + | Care Lighting Specialist Name | Role | Phone | [...] | | [address] | [address] [place], | | | | | [address] [place] | [place] [address] | | | | | [place], | [phone] | | | | | [place] [address] | | | | | | [phone] | | | +--------+ + + + [...]
--- OUTSIDE RECORDS SUMMARY | ~2017-09-06 | XMS | Encounter Summary ---
Demographics + + + | Address | [address] | | | [place] [address] | + + + | Home Phone [...] Team Providers + +------+ + | Care Voice Studies Director Name | Role | Phone | + [...] | | | | neoplasm of | [place] | [address] [facility] | | | | | upper lobe, | A MEDICAL | [facility] | | | | | left | CENTER [address] | [address] [place], | | | | | bronchus or | [address] | [place] | | | | | lung Lung | [place] | [address] | | | | | Ca w/ Brain | [address] | Phone: | | | | | Mets | [place], | [phone] | | | | | Procedures | [place] [address] | Fax: | | | | | Consult, | Phone: | [phone] | | | | | Treat, F/U | [phone] | | | | | | | Fax: | | | | | | | [phone] | | + +--------+ + + + [...] | | | | | | [place], | | | | | | [place] [address] | | | | | | [phone] | | | +--------+ + + + [...]
--- OUTSIDE RECORDS SUMMARY | ~2017-09-06 | XMS | Encounter Summary ---
Demographics + + + | Address | [address] | | | [place] [address] | + + + | Home Phone | | + + + | Preferred Language | Unknown | + + + | Marital Status | Single | + + + | Samaritan Affiliation | Unknown | + + + | Race | White | + + + | Ethnic Group | Not or | + + + Author + + + | Author | [facility] | + + + | Organization | [facility] | + + + | Address | Unknown | + + + | Phone | Unavailable | + + + Support + + +---------+ + | Name | Relationship | Address | Phone | + + +---------+ + | Stacy Mcghee | ECON | Unknown | | + + +---------+ + Care Team Providers + +------+ + | Care Barn Worker Name | Role | Phone | [...] | | | | Annabel Tripathi | [place], [place] | | | | | [place], | [address] | | | | | [place] [address] | [phone] | | | | | [phone] | | | +--------+ + + + [...]
--- OUTSIDE RECORDS SUMMARY | ~2017-09-06 | XMS | Encounter Summary ---
Demographics + + + | Address | [address] | | | [place] [address] | + + + | Home Phone [...] Team Providers + +------+ + | Care Product Development Coordinator Name | Role | Phone | + [...] | | | | neoplasm of | [place] | [address] [facility] | | | | | upper lobe, | A MEDICAL | [facility] | | | | | left | CENTER [address] | [address] [place], | | | | | bronchus or | [address] | [place] | | | | | lung Lung | [place] | [address] | | | | | Ca w/ Brain | [address] | Phone: | | | | | Mets | [place], | [phone] | | | | | Procedures | [place] [address] | Fax: | | | | | Consult, | Phone: | [phone] | | | | | Treat, F/U | [phone] | | | | | | | Fax: | | | | | | | [phone] | | + +--------+ + + + [...] | | | | | | [place], | | | | | | [place] [address] | | | | | | [phone] | | | +--------+ + + + [...]
--- OUTSIDE RECORDS SUMMARY | ~2017-09-06 | XMS | Encounter Summary ---
Demographics + + + | Address | [address] | | | [place] [address] | + + + | Home Phone | | + + + | Preferred Language | Unknown | + + + | Marital Status | Single | + + + | Alevism Affiliation | Unknown | + + + [...] Team Providers + +------+ + | Care Graphic Technician Name | Role | Phone | + +------+ + | No Pcp Per Patient | PCP | Unavailable | + +------+ + Encounter Details +--------+ + + + + | Date | Type | Department | Care Team | Description | +--------+ + + + + | 07/22/ | Document-Sc | [facility]FF [facility]UNBAR [address] | [address] | | | 2018 | anned | [facility] | [place] | | | | | Road [place], [place] | ADMINISTRATION [address] | | | | | [address] | [facility] [place] | | | | | | [address] | | | | | | [place] [address] | | | | | | [phone] | | | | | | | [...] Not on fileas of this encounter Results OUTSIDE LAB - PATHOLOGY (07/22/2017)in this encounter Visit Diagnoses Not on filein this encounter"
--- OUTSIDE RECORDS SUMMARY | ~2017-09-06 | XMS | Clinical Summary ---
Demographics + + + | Address | [address] | | | [place] [address] | + + + | Home Phone | | + + + | Preferred Language | Unknown | + + + | Marital Status | Single | + + + | Mormonism Affiliation | Unknown | + + + | Race | Unknown | + + + | Ethnic Group | Unknown | + + + Author + + + | Author | [facility] | | | and [place] | + + + | Organization | [facility] | | | [...] Team Providers + +------+ + | Care Oil Well Logging Engineer Name | Role | Phone | [...] for comparison only - no result from [place]. | + + XR Chest PA or AP (07/05/2017 1220) + + + | Specimen | Performing Laboratory | + + + | | [facility] | + + + + + | Narrative | + + | External films for comparison only - no result from [place]. | + + from Last 3 Months [...] | [birth year]/ | Home: | [address] | | | al/Fam | | 1946 | [phone] | [place] [address] | | | marito | | | [birth year] | | + +--------+ +--------+ + +"
--- OUTSIDE RECORDS SUMMARY | ~2017-09-06 | XMS | Encounter Summary ---
Demographics + + + | Address | [address] | | | [place] [address] | + + + | Home Phone | | + + + | Preferred Language | Unknown | + + + | Marital Status | Single | + + + | Caodaism Affiliation | Unknown | + + + | Race | Unknown | + + + | Ethnic Group | Unknown | + + + Author + + + | Author | [facility] | | | and [place] | + + + | Organization | [facility] | | | [...] Team Providers + +------+ + | Care Medical Support Specialist Name | Role | Phone | [...] | | | | | | | [address] | | + +--------+ + + + [...] [address] | | | | | [phone] | [place] [address] | | +--------+ + + + + [...]
--- OUTSIDE RECORDS SUMMARY | ~2017-09-06 | XMS | Encounter Summary ---
Demographics + + + | Address | [address] | | | [place] [address] | + + + | Home Phone | | + + + | Preferred Language | Unknown | + + + | Marital Status | Single | + + + | Gnosticist Affiliation | Unknown | + + + | Race | White | + + + | Ethnic Group | Not or | + + + Author + + + | Author | [facility] | + + + | Organization | [facility] | + + + | Address | Unknown | + + + | Phone | Unavailable | + + + Support + + +---------+ + | Name | Relationship | Address | Phone | + + +---------+ + | Stacy Mcghee | ECON | Unknown | | + + +---------+ + Care Team Providers + +------+ + | Care Rehabilitation Nurse Name | Role | Phone | + [...] Aldo Blum | | | | | ([facility]) | [address] | [facility] | | | | | Procedures | [facility] | Mailcode: | | | | | MRI BRAIN | [place], [place] | [address] | | | | | RADIATION | [address] | [place] | | | | | THERAPY | Phone: | Research | | | | | PLANNING [address] | [phone] | Center | | | | | CONTRAST | Fax: | [place], [place] | | | | | | [phone] | [address] | | | | | | | Phone: | | | | | | | [phone] | | | | | | | Fax: | | | | | | | [phone] | +--------+--------+ + + + + Diagnostic [...] Aldo Blum | | | | | ([facility]) | [address] | [facility] | | | | | Procedures | [facility] | Mailcode: | | | | | MRI BRAIN | [place], [place] | [address] | | | | | RADIATION | [address] | [place] | | | | | THERAPY | Phone: | Research | | | | | PL[address]ING [address] | [phone] | [place] | | | | | CONTRAST | Fax: | [place], [place] | | | | | | [phone] | [address] | | | | | | | Phone: | | | | | | | [phone] | | | | | | | Fax: | | | | | | | [phone] | +--------+--------+ + + + + Reason [...] | | | (HCC) | [address] | [facility] | | | | | Procedures | [facility] | Mailcode: | | | | | MRI BRAIN | [place], [place] | [address] | | | | | RADIATION | [address] | [place] | | | | | THERAPY | Phone: | Research | | | | | PL[address]ING [address] | [phone] | Center | | | | | CONTRAST | Fax: | [place], [place] | | | | | | [phone] | [address] | | | | | | | Phone: | | | | | | | [phone] | | | | | | | Fax: | | | | | | | [phone] | +--------+--------+ + + + + Encounter Details +--------+ + + + + | Date | Type | Department | Care Team | Description | +--------+ + + + + | 08/12/ | Hospital | Diagnostic Imaging | Srinivasa Fregoso, | | | 2018 | Encounter | Services at [facility] | [address] | | | | | [address] | [facility] | | | | | [facility] | [place], [place] | | | | | Mailcode: [address] | [address] | | | | | [facility] | [phone] | | | | | [place], [place] | | | | | | [address] | | | | | | [phone] | | | +--------+ + + + [...] | + + + | Blood | [facility] TESTS [address] | | | [place] [address] | + + + in this encounter [...]
--- OUTSIDE RECORDS SUMMARY | ~2017-09-06 | XMS | Encounter Summary ---
Demographics + + + | Address | [address] | | | [place] [address] | + + + | Home Phone [...] Author + + + | Author | [facility] | + + + | Organization | [facility] | + + + | Address | Unknown | + + + | Phone | Unavailable | + + + Support + + +---------+ + | Name | Relationship | Address | Phone | + + +---------+ + | Stacy Mcghee | ECON | Unknown | | + + +---------+ + Care Team Providers + +------+ + | Care Arbor Press Operator Name | Role | Phone [...] | | | | neoplasm of | [place] | [address] [facility] | | | | | upper lobe, | A MEDICAL | [facility] | | | | | left | CENTER [address] | [address] [place], | | | | | bronchus or | [address] | [place] | | | | | lung Lung | [place] | [address] | | | | | Ca w/ Brain | [address] | Phone: | | | | | Mets | [place], | [phone] | | | | | Procedures | [place] [address] | Fax: | | | | | Consult, | Phone: | [phone] | | | | | Treat, F/U | [phone] | | | | | | | Fax: | | | | | | | [phone] | | + +--------+ + + + [...] | | | | | | [place], | | | | | | [place] [address] | | | | | | [phone] | | | +--------+ + + + [...]
--- OUTSIDE RECORDS SUMMARY | ~2017-09-06 | XMS | Encounter Summary ---
Demographics + + + | Address | [address] | | | [place] [address] | + + + | Home Phone [...] Team Providers + +------+ + | Care Master Control Technician Name | Role | Phone | [...] | | | Aldo Vital | [place], [place] | | | | | Annabel Tripathi | [address] | | | | | [place], | | | | | | [place] [address] | | | | | | [phone] | | | +--------+ + + + [...]
--- OUTSIDE RECORDS SUMMARY | ~2017-09-06 | XMS | Encounter Summary ---
Demographics + + + | Address | [address] | | | [place] [address] | + + + | Home Phone | | + + + | Preferred Language | Unknown | + + + | Marital Status | Single | + + + | Sikhism Affiliation [...] Team Providers + +------+ + | Care Raking Machine Operator Name | Role | Phone | [...] | Staff | [address] | [address] [place], [place] | | | | | [address] Tripathi | [address] | | | | | [place], | | | | | | [place] [address] | | | | | | [phone] | | | +--------+ + + + [...]
--- OUTSIDE RECORDS SUMMARY | ~2017-09-06 | XMS | Encounter Summary ---
Demographics + + + | Address | [address] | | | [place] [address] | + + + | Home Phone | | + + + | Preferred Language | Unknown | + + + | Marital Status | Single | + + + | Amish Affiliation | Unknown | + + + | Race | White | + + + | Ethnic Group | Not or | + + + Author + + + | Author | [facility] | + + + | Organization | [facility] | + + + | Address | Unknown | + + + | Phone | Unavailable | + + + Support + + +---------+ + | Name | Relationship | Address | Phone | + + +---------+ + | Stacy Mcghee | ECON | Unknown | | + + +---------+ + Care Team Providers + +------+ + | Care File Clerk Data Entry Name | Role | Phone | + [...] | | | | neoplasm of | [place] | [address] [facility] | | | | | upper lobe, | A MEDICAL | [facility] | | | | | left | CENTER [address] | [address] [place], | | | | | bronchus or | [address] | [place] | | | | | lung Lung | [place] | [address] | | | | | Ca w/ Brain | [address] | Phone: | | | | | Mets | [place], | [phone] | | | | | Procedures | [place] [address] | Fax: | | | | | Consult, | Phone: | [phone] | | | | | Treat, F/U | [phone] | | | | | | | Fax: | | | | | | | [phone] | | + +--------+ + + + [...] | | | | | | [place], | | | | | | [place] [address] | | | | | | [phone] | | | +--------+ + + + [...]
--- OUTSIDE RECORDS SUMMARY | ~2017-09-06 | XMS | Encounter Summary ---
Demographics + + + | Address | [address] | | | [place] [address] | + + + | Home Phone | | + + + | Preferred Language | Unknown | + + + | Marital Status | Single | + + + | Buddhism Affiliation | Unknown | + + + [...] Team Providers + +------+ + | Care Cut Off Saw Grader Name | Role | Phone | + [...] | | | | neoplasm of | [place] | [address] [facility] | | | | | upper lobe, | A MEDICAL | [facility] | | | | | left | CENTER [address] | Rd [place], | | | | | bronchus or | [address] | [place] | | | | | lung Lung | [place] | [address] | | | | | Ca w/ Brain | [address] | Phone: | | | | | Mets | [place], | [phone] | | | | | Procedures | [place] [address] | Fax: | | | | | Consult, | Phone: | [phone] | | | | | Treat, F/U | [phone] | | | | | | | Fax: | | | | | | | [phone] | | + +--------+ + + + [...] | | | | | | [place], | | | | | | [place] [address] | | | | | | [phone] | | | +--------+ + + + [...]
--- OUTSIDE RECORDS SUMMARY | ~2017-09-06 | XMS | Encounter Summary ---
Demographics + + + | Address | [address] | | | [place] [address] | + + + | Home Phone [...] + + + | Author | [facility] | + + + | Organization | [facility] | + + + | Address | Unknown | + + + | Phone | Unavailable | + + + Support + + +---------+ + | Name | Relationship | Address | Phone | + + +---------+ + | Stacy Mcghee | ECON | Unknown | | + + +---------+ + Care Team Providers + +------+ + | Care Collar Baster Jumpbasting Name | Role | Phone | + [...] | | | | neoplasm of | [place] | [address] [facility] | | | | | upper lobe, | A MEDICAL | [facility] | | | | | left | CENTER [address] | Rd [place], | | | | | bronchus or | [address] | [place] | | | | | lung Lung | [place] | [address] | | | | | Ca w/ Brain | [address] | Phone: | | | | | Mets | [place], | [phone] | | | | | Procedures | [place] [address] | Fax: | | | | | Consult, | Phone: | [phone] | | | | | Treat, F/U | [phone] | | | | | | | Fax: | | | | | | | [phone] | | + +--------+ + + + [...] | | | | | | [place], | | | | | | [place] [address] | | | | | | [phone] | | | +--------+ + + + [...]
--- OUTSIDE RECORDS SUMMARY | ~2017-09-06 | XMS | Encounter Summary ---
Demographics + + + | Address | [address] | | | [place] [address] | + + + | Home Phone | | + + + | Preferred Language | Unknown | + + + | Marital Status | Single | + + + | Shinto Affiliation | Unknown | + + + | Race | Unknown | + + + | Ethnic Group | Unknown | + + + Author + + + | Author | [facility] | | | and [place] | + + + | Organization | [facility] | | | [...] Team Providers + +------+ + | Care Mathematical Sciences Professor Name | Role | Phone | + [...] | | | | | | | [address] | | + +--------+ + + + [...] Reymundo [address] | | | | | [phone] | [place] [address] | | +--------+ + + + + [...]
--- OUTSIDE RECORDS SUMMARY | ~2017-09-06 | XMS | Encounter Summary ---
Demographics + + + | Address | [address] | | | [place] [address] | + + + | Home Phone | | + + + | Preferred Language | Unknown | + + + | Marital Status | Single | + + + | Rastafari Affiliation | Unknown | + + + | Race | Unknown | + + + | Ethnic Group | Unknown | + + + Author + + + | Author | [facility] | | | and [place] | + + + | Organization | [facility] | | | [...] Team Providers + +------+ + | Care Phone Manager Name | Role | Phone | + [...] | | | Mass of | Tatyana, ASSOCIATE PROFESSOR OF RADIOLOGY | [place] | | | | | upper lobe | [address] | [place] | | | | | of right | [address] | MEDICAL | | | | | lung | [address] [place] | CENTER [address] | | | | | Procedures | [place] | [place] | | | | | PET CT Skull | [address] | [place], | | | | | Base To Mid | Phone: | [place] [address] | | | | | Thigh | [phone] | Phone: | | | | | | Fax: | [phone] | | | | | | [phone] | Fax: | | | | | | | [phone] | + +--------+ + + + + Encounter Details +--------+ + + + + | Date | Type | Department | Care Team | Description | +--------+ + + + + | 07/15/ | Ancillary | [facility] | Tatyana Aguila FNP | Mass of upper lobe | | 2018 | Orders | MED CTR XRAY [address] | [address] | of right lung | | | | [place] | [place] | | | | | [place] [address] | [address] | | | | | [phone] | | | +--------+ + + + [...]
--- OUTSIDE RECORDS SUMMARY | ~2017-09-06 | XMS | Encounter Summary ---
Demographics + + + | Address | [address] | | | [place] [address] | + + + | Home Phone | | + + + | Preferred Language | Unknown | + + + | Marital Status | Single | + + + | Zoroastrianism Affiliation | Unknown | + + + | Race | Unknown | + + + | Ethnic Group | Unknown | + + + Author + + + | Author | [facility] | | | and [place] | + + + | Organization | [facility] | | | and [...] Team Providers + +------+ + | Care Mva Still Operator Name | Role | Phone | [...] | | | | | | | [address] | | + +--------+ + + + [...] | | | | | | | [address] | | + +--------+ + + + [...] [address] | | | | | [phone] | [place] [address] | | +--------+ + + + + [...] for comparison only - no result from [place]. | + + XR Chest PA or AP (07/05/2017 1220) + + + | Specimen | Performing Laboratory | + + + | | [facility] | + + + + + | Narrative | + + | External films for comparison only - no result from [place]. | + + CT Chest w Contrast (07/31/2011914) + + + | Specimen | Performing Laboratory | + + + | | [facility] | + + + + + | Narrative | + + | External films for comparison only - no result from [place]. | + + in this encounter Visit Diagnoses Not on filein this encounter"
--- OUTSIDE RECORDS SUMMARY | ~2017-09-06 | XMS | Encounter Summary ---
Demographics + + + | Address | [address] | | | [place] [address] | + + + | Home Phone | | + + + | Preferred Language | Unknown | + + + | Marital Status | Single | + + + | Hoahaoism Affiliation | Unknown | + + + | Race | White | + + + | Ethnic Group | Not or | + + + Author + + + | Author | [facility] | + + + | Organization | [facility] | + + + | Address | Unknown | + + + | Phone | Unavailable | + + + Support + + +---------+ + | Name | Relationship | Address | Phone | + + +---------+ + | Stacy Mcghee | ECON | Unknown | | + + +---------+ + Care Team Providers + +------+ + | Care Graphics Manager Name | Role | Phone | [...] | | | | neoplasm of | [place] | [address] [facility] | | | | | upper lobe, | A MEDICAL | [facility] | | | | | left | CENTER [address] | Rd [place], | | | | | bronchus or | [address] | [place] | | | | | lung Lung | [place] | [address] | | | | | Ca w/ Brain | [address] | Phone: | | | | | Mets | [place], | [phone] | | | | | Procedures | [place] [address] | Fax: | | | | | Consult, | Phone: | [phone] | | | | | Treat, F/U | [phone] | | | | | | | Fax: | | | | | | | [phone] | | + +--------+ + + + [...] | | | | | | [place], | | | | | | [place] [address] | | | | | | [phone] | | | +--------+ + + + [...]
--- OUTSIDE RECORDS SUMMARY | ~2017-09-06 | XMS | Encounter Summary ---
Demographics + + + | Address | [address] | | | [place] [address] | + + + | Home Phone | | + + + | Preferred Language | Unknown | + + + | Marital Status | Single | + + + | Orthodoxy Affiliation | Unknown | + + + | Race | White | + + + | Ethnic Group | Not or | + + + Author + + + | Author | [facility] | + + + | Organization | [facility] | + + + | Address | Unknown | + + + | Phone | Unavailable | + + + Support + + +---------+ + | Name | Relationship | Address | Phone | + + +---------+ + | Stacy Mcghee | ECON | Unknown | | + + +---------+ + Care Team Providers + +------+ + | Care Sales Route Driver Helper Name | Role | Phone | + [...] | | 2018 | anned | [facility] | [place] | | | | | Road [place], [place] | ADMINISTRATION [address] | | | | | [address] | [facility] [place] | | | | | | [address] | | | | | | [place] [address] | | | | | | [phone] | | | | | | | [...]
--- OUTSIDE RECORDS SUMMARY | ~2017-09-06 | XMS | Encounter Summary ---
Demographics + + + | Address | [address] | | | [place] [address] | + + + | Home Phone | | + + + | Preferred Language | Unknown | + + + | Marital Status | Single | + + + | Druze Affiliation | Unknown | + + + | Race | Unknown | + + + | Ethnic Group | Unknown | + + + Author + + + | Author | [facility] | | | and [place] | + + + | Organization | [facility] | | | [...] Team Providers + +------+ + | Care Correction Worker Name | Role | Phone | + +------+ + PCP | Unavailable | + +------+ + Encounter Details +--------+ + + + + | Date | Type | Department | Care Team | Description | +--------+ + + + + | 07/05/ | Imaging | [facility] | Provider, | | | 2018 | Exam | MED CTR EXTERNAL | MD [address] | | | | | IMAGING | [address] [place] | | | | | [phone] | [place] [address] | | +--------+ + + + + [...] for comparison only - no result from [place]. | + + in this encounter Visit Diagnoses Not on filein this encounter"
--- OUTSIDE RECORDS SUMMARY | ~2017-09-06 | XMS | Encounter Summary ---
Demographics + + + | Address | [address] | | | [place] [address] | + + + | Home Phone [...] + + + | Author | [facility] | | | and [place] | + + + | Organization | [facility] | | | and [...] Team Providers + +------+ + | Care Certified Pathology Assistant Name | Role | Phone | + +------+ + | Unknown, Doctor | PCP | Unavailable | + +------+ + Encounter Details +--------+ + + + + | Date | Type | Department | Care Team | Description | +--------+ + + + + | 07/15/ | Ancillary | [facility] | Tatyana Aguila FNP | | | 2018 | Orders | [facility] | [address] [facility] | | | | | RADIOLOGY [address] | [place], [place] | | | | | [place], | [address] | | | | | [place] [address] | | | | | | [phone] | | | +--------+ + + + [...]
--- OUTSIDE RECORDS SUMMARY | ~2017-09-06 | XMS | Clinical Summary ---
Demographics + + + | Address | [address] | | | [place] [address] | + + + | Home Phone [...] Team Providers + +------+ + | Care Corporate Strategist Name | Role | Phone | + +------+ + | No Pcp Per Patient | PP | Unavailable | + +------+ + Source Comments RAPHAEL is fully live on both [facility] Ambulatory and [facility] InPatient.[facility] Allergies No Known Allergies Current Medications + [...] + + + + | 08/06/ | Branch Assistant | | Srinivasa Fregoso, | Brain metastases [...] | + + + | Blood | [facility] [address] | | | [place] [address] | + + + SPECIMEN ROUTING (07/22/2017 12:00 PM) + + + | Specimen | Performing Laboratory | + + + | Slide-Block | [facility] [address] | | | [address] [place] [address] | + + + FISH, MOLECULAR PROBE, [...] | | | made by the clinical shoe folder. This test | | | | was developed and its performance | | | | characteristics determined by the [facility] | | | | [facility]. It has | | | | not [...] 1988 | | | | (CLIA). The [facility] | | | | Laboratories are fully licensed by the | | | | [facility] under CLIA and are | | | | accredited by the [employer] | | | | Pathologists (CAP). Laboratory | | | | Director: Duke Gore M.D., | | | | Ph.D Electronically reviewed and signed | | | | by:Kalin Sahu, PhD, [facility] | | | | Corner Block Cutter Clinical Molecular | | | | Geneticist07/30/2017 at 12:14 PM | | | | Reviewed and electronically signed by | | | | ERNESTINE CRUZ MD,[facility]07/30/2017 4:18 PM | | + + + + + + + | Specimen | Performing Laboratory | + + + | Slide-Block | [facility] [address] | | | [address] [place] [address] | + + + GENETRAILS LUNG CANCER PANEL (07/22/2017 12:01 AM) + + + + | Component | Value | Ref Range | + + + + | [facility] FertiliTechRAILS LUNG | See Interpretation. | | | [...] on an Illumina | | | | [id number]. The minimum detectable mutant | | | [...] | | | characteristics determined by the [facility] | | | | [facility]. It has | | | [...] 1988 | | | | (CLIA). The [facility] | | | | Laboratories are fully licensed by the | | | | state [facility] under CLIA and are | | | | accredited by the [employer] | | | | Pathologists (CAP). Laboratory | | | | Director: Duke Gore M.D., | | | | Ph.D Reviewed and electronically signed by | | | | KEN WORRELL MD3 7:54 AM | | + + + + + + + | Specimen | Performing Laboratory | + + + | Slide-Block | [facility] [address] | | | [address] [place] [address] | + + + NSCLC FISH [place], [...] + + | Slide-Block | [facility] [address] | | | [address] [place] [address] | + + + OUTSIDE LAB - PATHOLOGY (07/22/2017)from Last 3 Months"
--- OUTSIDE RECORDS SUMMARY | ~2017-09-06 | XMS | Encounter Summary ---
Demographics + + + | Address | [address] | | | [place] [address] | + + + | Home Phone [...] + + | Author | [facility] | + + + | Organization | [facility] | + + + | Address | Unknown | + + + | Phone | Unavailable | + + + Support + + +---------+ + | Name | Relationship | Address | Phone | + + +---------+ + | Stacy Mcghee | ECON | Unknown | | + + +---------+ + Care Team Providers + +------+ + | Care Veneer Production Machine Operator Name | Role | Phone [...] | | 2017 | Visit | at [facility] [address] | [place], [address] [address] | radiotherapy | | | | [address] | [address] | (Primary Dx) | | | | Annabel Tripathi | [place], [place] | | | | | [place], | [address] | | | | | [place] [address] | [phone] | | | | | [phone] | | | +--------+---------+ + + + [...] 72 y.o. 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 Cont RT. MD Clifton JIMENES, [place], [place] - 08/26/2017 10:50 AM PDTPt presents for [...]
--- OUTSIDE RECORDS SUMMARY | ~2017-09-06 | XMS | Encounter Summary ---
Demographics + + + | Address | [address] | | | [place] [address] | + + + | Home Phone | | + + + | Preferred Language | Unknown | + + + | Marital Status | Single | + + + | Denominational Affiliation | Unknown | + + + | Race | Unknown | + + + | Ethnic Group | Unknown | + + + Author + + + | Author | [facility] | | | and [place] | + + + | Organization | [facility] | | [...] Team Providers + +------+ + | Care Chief Medical Officer Name | Role | Phone | [...] | | | | | | | [address] | | + +--------+ + + + [...] | | | | | | | [address] | | + +--------+ + + + [...] [address] | | | | | [phone] | [place] [address] | | +--------+ + + + + [...] for comparison only - no result from [place]. | + + XR Chest PA or AP (07/05/2017 1220) + + + | Specimen | Performing Laboratory | + + + | | [facility] | + + + + + | Narrative | + + | External films for comparison only - no result from [place]. | + + CT Chest w Contrast (07/31/2011914) + + + | Specimen | Performing Laboratory | + + + | | [facility] | + + + + + | Narrative | + + | External films for comparison only - no result from [place]. | + + in this encounter Visit Diagnoses Not on filein this encounter"
--- OUTSIDE RECORDS SUMMARY | ~2017-09-06 | XMS | Encounter Summary ---
Demographics + + + | Address | [address] | | | [place] [address] | + + + | Home Phone | | + + + | Preferred Language | Unknown | + + + | Marital Status | Single | + + + | Christianity Affiliation | Unknown | + + + | Race | White | + + + | Ethnic Group | Not or | + + + Author + + + | Author | [facility] | + + + | Organization | [facility] | + + + | Address | Unknown | + + + | Phone | Unavailable | + + + Support + + +---------+ + | Name | Relationship | Address | Phone | + + +---------+ + | Stacy Mcghee | ECON | Unknown | | + + +---------+ + Care Team Providers + +------+ + | Care Hospital Librarian Name | Role | Phone | + [...] | | [address] | [address] [place], | | | | | [address] [place] | [place] [address] | | | | | [place], | [phone] | | | | | [place] [address] | | | | | | [phone] | | | +--------+ + + + [...]
--- OUTSIDE RECORDS SUMMARY | ~2017-09-06 | XMS | Encounter Summary ---
Demographics + + + | Address | [address] | | | [place] [address] | + + + | Home Phone [...] Author + + + | Author | [facility] | + + + | Organization | [facility] | + + + | Address | Unknown | + + + | Phone | Unavailable | + + + Support + + +---------+ + | Name | Relationship | Address | Phone | + + +---------+ + | Stacy Mcghee | ECON | Unknown | | + + +---------+ + Care Team Providers + +------+ + | Care Marine Cargo Specialist Name | Role | Phone | [...] 2017 | Requisition | [address] [facility] | [place] | | | | | Road [place], [place] | ADMINISTRATION [address] | | | | | [address] | [facility] [place] | | | | | | [facility] | | | | | | [place] [address] | | | | | | [phone] | | | | | | | [...] | + + + | Slide-Block | [facility] [address] | | | [address] [place] [address] | + + + FISH, MOLECULAR PROBE, [...] | | | made by the clinical ammonia box tender. This test | | | | was developed and its performance | | | | characteristics determined by the [facility] | | | | [facility]. It has | | | | not [...] 1988 | | | | (CLIA). The [facility] [employer] | | | | Laboratories are fully licensed by the | | | | [facility] under CLIA and are | | | | accredited by the [employer] | | | | Pathologists (CAP). Laboratory | | | | Director: Duke Gore M.D., | | | | Ph.D Electronically reviewed and signed | | | | by:Kalin Sahu, PhD, [facility] | | | | Business Unit Director Clinical Molecular | | | | Geneticist07/30/2017 at 12:14 PM | | | | Reviewed and electronically signed by | | | | ERNESTINE CRUZ MD,[facility]07/30/2017 4:18 PM | | + + + + + + + | Specimen | Performing Laboratory | + + + | Slide-Block | [facility] [address] | | | [address] [place] [address] | + + + GENETRAKnip LUNG CANCER PANEL (07/22/2017 12:01 AM) + [...] on an Illumina | | | | [id number]. The minimum detectable mutant | | | [...] | | | characteristics determined by the [facility] | | | | [facility]. It has | | | [...] 1988 | | | | (CLIA). The [facility] | | | | Laboratories are fully licensed by the | | | | state of [place] under CLIA and are | | | | accredited by the [employer] | | | | Pathologists (CAP). Laboratory | | | | Director: Duke Gore M.D., | | | | Ph.D Reviewed and electronically signed by | | | | KEN WORRELL MD08/07/2017 7:54 AM | | + + + + + + + | Specimen | Performing Laboratory | + + + | Slide-Block | [facility] [address] | | | [address] [place] [address] | + + + in this encounter Visit Diagnoses + + | Diagnosis | + + | Encounter for other specified special examinations (CODE) | + +"
--- OUTSIDE RECORDS SUMMARY | ~2017-09-06 | XMS | Encounter Summary ---
Demographics + + + | Address | [address] | | | [place] [address] | + + + | Home Phone | | + + + | Preferred Language | Unknown | + + + | Marital Status | Single | + + + | Evangelical Affiliation | Unknown | + + + | Race | Unknown | + + + | Ethnic Group | Unknown | + + + Author + + + | Author | [facility] | | | and [place] | + + + | Organization | [facility] | | | [...] Providers + +------+ + | Care Painter Airbrush Name | Role | Phone | + +------+ + PCP | Unavailable | + +------+ + Encounter Details +--------+ + + + + | Date | Type | Department | Care Team | Description | +--------+ + + + + | 07/05/ | Imaging | [facility] | Provider, | | | 2018 | Exam | MED CTR EXTERNAL | MD [address] | | | | | IMAGING | [address] | | | | | [phone] | [place] [address] | | +--------+ + + + + [...] for comparison only - no result from [place]. | + + in this encounter Visit Diagnoses Not on filein this encounter"
--- OUTSIDE RECORDS SUMMARY | ~2017-09-06 | XMS | Encounter Summary ---
Demographics + + + | Address | [address] | | | [place] [address] | + + + | Home Phone [...] + + + | Author | [facility] | + + + | Organization | [facility] | + + + | Address | Unknown | + + + | Phone | Unavailable | + + + Support + + +---------+ + | Name | Relationship | Address | Phone | + + +---------+ + | Stacy Mcghee | ECON | Unknown | | + + +---------+ + Care Team Providers + +------+ + | Care Senior Medical Transcriptionist Name | Role | Phone | + [...] | | 2018 | anned | [address] [facility] | [place] | | | | | Road [place], [place] | ADMINISTRATION [address] | | | | | [address] | [facility] [place] | | | | | | [address] | | | | | | [place] [address] | | | | | | [phone] | | | | | | | [...]
--- OUTSIDE RECORDS SUMMARY | ~2017-09-06 | XMS | Encounter Summary ---
Demographics + + + | Address | [address] | | | [place] [address] | + + + | Home Phone | | + + + | Preferred Language | Unknown | + + + | Marital Status | Single | + + + | Pentecostalism Affiliation | Unknown | + + + | Race | Unknown | + + + | Ethnic Group | Unknown | + + + Author + + + | Author | [facility] | | | and [place] | + + + | Organization | [facility] | | [...] Team Providers + +------+ + | Care Wildland Fire Fighter Specialist Name | Role | Phone | + +------+ + | Unknown, Doctor | PCP | Unavailable | + +------+ + Encounter Details +--------+ + + + + | Date | Type | Department | Care Team | Description | +--------+ + + + + | 07/15/ | Ancillary | [facility] | Tatyana Aguila FNP | | | 2018 | Orders | MED [facility] | [address] [facility] | | | | | RADIOLOGY [address] | [place], [place] | | | | | [place], | [address] | | | | | [place] [address] | | | | | | [phone] | | | +--------+ + + + [...]
--- OUTSIDE RECORDS SUMMARY | ~2017-09-06 | XMS | Encounter Summary ---
Demographics + + + | Address | [address] | | | [place] [address] | + + + | Home Phone [...] + + | Author | [facility] | + + + | Organization | [facility] | + + + | Address | Unknown | + + + | Phone | Unavailable | + + + Support + + +---------+ + | Name | Relationship | Address | Phone | + + +---------+ + | Stacy Mcghee | ECON | Unknown | | + + +---------+ + Care Team Providers + +------+ + | Care Hotel Assistant General Manager Name | Role | Phone | [...] | | | | neoplasm of | [place] | [address] [facility] | | | | | upper lobe, | A MEDICAL | [facility] | | | | | left | CENTER [address] | [address] [place], | | | | | bronchus or | [address] | [place] | | | | | lung Lung | [place] | [address] | | | | | Ca w/ Brain | [address] | Phone: | | | | | Mets | [place], | [phone] | | | | | Procedures | [place] [address] | Fax: | | | | | Consult, | Phone: | [phone] | | | | | Treat, F/U | [phone] | | | | | | | Fax: | | | | | | | [phone] | | + +--------+ + + + [...] | | | | | | [place], | | | | | | [place] [address] | | | | | | [phone] | | | +--------+ + + + [...]
--- OUTSIDE RECORDS SUMMARY | ~2017-09-06 | XMS | Encounter Summary ---
Demographics + + + | Address | [address] | | | [place] [address] | + + + | Home Phone | | + + + | Preferred Language | Unknown | + + + | Marital Status | Single | + + + | Sikh Affiliation | Unknown | + + + | Race | White | + + + | Ethnic Group | Not or | + + + Author + + + | Author | [facility] | + + + | Organization | [facility] | + + + | Address | Unknown | + + + | Phone | Unavailable | + + + Support + + +---------+ + | Name | Relationship | Address | Phone | + + +---------+ + | Stacy Mcghee | ECON | Unknown | | + + +---------+ + Care Team Providers + +------+ + | Care Mold Presser Name | Role | Phone | + [...] | | 2017 | Visit | at [facility] [address] | [place], [address] [address] | radiotherapy | | | | Aldo Vital | [address] | (Primary Dx) | | | | Annabel Tripathi | [place], [place] | | | | | [place], | [address] | | | | | [place] [address] | [phone] | | | | | [phone] | | | +--------+---------+ + + + [...] 72 y.o. 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 Cont RT. MD [place]if[place] JIMENES, [place] - 08/26/2017 10:50 AM PDTPt presents for [...]
--- OUTSIDE RECORDS SUMMARY | ~2017-09-06 | XMS | Encounter Summary ---
Demographics + + + | Address | [address] | | | [place] [address] | + + + | Home Phone | | + + + | Preferred Language | Unknown | + + + | Marital Status | Single | + + + | Oriental Orthodox Affiliation | Unknown | + + + | Race | White | + + + | Ethnic Group | Not or | + + + Author + + + | Author | [facility] | + + + | Organization | [facility] | + + + | Address | Unknown | + + + | Phone | Unavailable | + + + Support + + +---------+ + | Name | Relationship | Address | Phone | + + +---------+ + | Stacy Mcghee | ECON | Unknown | | + + +---------+ + Care Team Providers + +------+ + | Care Rfid Systems Architect Name | Role | Phone | + [...] | | | | | | Road [place], [place] | | | | | | [address] | | | | | | [phone] | | | +--------+ + + + [...] + + + | Slide-Block | ANGELA [employer] [facility] [address] | | | [address] [place] [address] | + + + in this encounter Visit Diagnoses Not on filein this encounter"
--- OUTSIDE RECORDS SUMMARY | ~2017-09-06 | XMS | Encounter Summary ---
Demographics + + + | Address | [address] | | | [place] [address] | + + + | Home Phone [...] Author + + + | Author | [facility] | + + + | Organization | [facility] | + + + | Address | Unknown | + + + | Phone | Unavailable | + + + Support + + +---------+ + | Name | Relationship | Address | Phone | + + +---------+ + | Stacy Mcghee | ECON | Unknown | | + + +---------+ + Care Team Providers + +------+ + | Care Medical Equipment Repairer Name | Role | Phone | + [...] of | [place] | [address] [facility] | | | | | upper lobe, | A MEDICAL | [facility] | | | | | left | CENTER [address] | [address] [place], | | | | | bronchus or | [address] | [place] | | | | | lung Lung | [place] | [address] | | | | | Ca w/ Brain | [address] | Phone: | | | | | Mets | [place], | [phone] | | | | | Procedures | [place] [address] | Fax: | | | | | Consult, | Phone: | [phone] | | | | | Treat, F/U | [phone] | | | | | | | Fax: | | | | | | | [phone] | | + +--------+ + + + [...] | | | | Aldo Vital | [address] | | | | | Road [address] | [place], [place] | | | | | [place], | [address] | | | | | [place] | [phone] | | | | | [phone] | | | +--------+---------+ + + + [...] for a consultation visit with Dr. Joby enlgish regarding radiation treatment options. Pt alert, oriented, and wheelchair with a steady g ait Pt oriented to clinic and reviewed the Introduction to the [facility] Radiation Oncology Departme nt pt information [...] year old man with Stage IVB metastatic [id number] squamous cell car cinoma of the RUL [...] to the ED. 07/05/17 - presented to [place] ED with progressive LLE weakness; imaging revealed lung a nd brain masses; started on Keppra. 07/17/17 - presented to [facility] ED 07/17/17 - MRI Brain: 4 parenchymal [...] roving. He is currently staying at the [facility] in [place]. He has been staying th [facility] for a little more than a week. He is a former smoker. Quit smoking 12 years ago. He has an appointment scheduled with a medical oncologist on 08/15/17. 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 No current facility-administered medications for this visit. REVIEW OF SYSTEMS: I personally reviewed the [facility] Radiation Oncology Questionnaire with the patient. [...] 72 y.o. man with Stage IVB metastatic [id number] squamous cell carcinoma of the RUL s/p [...] plan. [facility] Dept of Radiation Medicine [facility] [place] Afsaneh Schwarz, am functioning as a scribe [...]
--- OUTSIDE RECORDS SUMMARY | ~2017-09-06 | XMS | Encounter Summary ---
Demographics + + + | Address | [address] | | | [place] [address] | + + + | Home Phone | | + + + | Preferred Language | Unknown | + + + | Marital Status | Single | + + + | Anabaptist Affiliation | Unknown | + + + [...] Team Providers + +------+ + | Care Corrections Specialist Name | Role | Phone | [...] | | | | Annabel Tripathi | [place], [place] | | | | | [place], | [address] | | | | | [place] [address] | [phone] | | | | | [phone] | | | +--------+ + + + [...]
--- OUTSIDE RECORDS SUMMARY | ~2017-09-06 | XMS | Encounter Summary ---
Demographics + + + | Address | [address] | | | [place] [address] | + + + | Home Phone | | + + + | Preferred Language | Unknown | + + + | Marital Status | Single | + + + | Moravian Affiliation | Unknown | + + + [...] Team Providers + +------+ + | Care Automation Controls Expert Name | Role | Phone | + [...] | | | | neoplasm of | [place] | [address] [facility] | | | | | upper lobe, | A MEDICAL | [facility] | | | | | left | CENTER [address] | [address] [place], | | | | | bronchus or | [address] | [place] | | | | | lung Lung | [place] | [address] | | | | | Ca w/ Brain | [address] | Phone: | | | | | Mets | [place], | [phone] | | | | | Procedures | [place] [address] | Fax: | | | | | Consult, | Phone: | [phone] | | | | | Treat, F/U | [phone] | | | | | | | Fax: | | | | | | | [phone] | | + +--------+ + + + [...] | | | | | | [place], | | | | | | [place] [address] | | | | | | [phone] | | | +--------+ + + + [...]
--- OUTSIDE RECORDS SUMMARY | ~2017-09-06 | XMS | Encounter Summary ---
Demographics + + + | Address | [address] | | | [place] [address] | + + + | Home Phone [...] + + + | Author | [facility] | + + + | Organization | [facility] | + + + | Address | Unknown | + + + | Phone | Unavailable | + + + Support + + +---------+ + | Name | Relationship | Address | Phone | + + +---------+ + | Stacy Mcghee | ECON | Unknown | | + + +---------+ + Care Team Providers + +------+ + | Care Clinical Trial Manager Name | Role | Phone | [...] | | | | | | Road [place], [place] | | | | | | [address] | | | | | | [phone] | | | +--------+ + + + [...] + + + | Slide-Block | ANGELA [facility] [address] | | | [address] [place] [address] | + + + in this encounter Visit Diagnoses Not on filein this encounter"
--- OUTSIDE RECORDS SUMMARY | ~2017-09-06 | XMS | Encounter Summary ---
Demographics + + + | Address | [address] | | | [place] [address] | + + + | Home Phone | | + + + | Preferred Language | Unknown | + + + | Marital Status | Single | + + + | Yarsanism Affiliation | Unknown | + + + [...] Team Providers + +------+ + | Care Automobile Mechanic Assistant Name | Role | Phone | [...] of | [place] | [address] [facility] | | | | | upper lobe, | A MEDICAL | [facility] | | | | | left | CENTER [address] | Rd [place], | | | | | bronchus or | [address] | [place] | | | | | lung Lung | [place] | [address] | | | | | Ca w/ Brain | [address] | Phone: | | | | | Mets | [place], | [phone] | | | | | Procedures | [place] [address] | Fax: | | | | | Consult, | Phone: | [phone] | | | | | Treat, F/U | [phone] | | | | | | | Fax: | | | | | | | [phone] | | + +--------+ + + + [...] | | | | Aldo Vital | [facility] [address] | | | | | Road [address] | [place], [place] | | | | | [place], | [address] | | | | | [place] | [phone] | | | | | [phone] | | | +--------+---------+ + + + [...] clinic and reviewed the Introduction to the [facility] Radiation Oncology Departme nt pt information [...] year old man with Stage IVB metastatic [id number] squamous cell car cinoma of the RUL [...] to the ED. 07/05/17 - presented to [place] ED with progressive LLE weakness; imaging revealed lung a nd brain masses; started on Keppra. 07/17/17 - presented to [facility] ED 07/17/17 - MRI Brain: 4 [...] roving. He is currently staying at the [facility] in [place]. He has been staying th [facility] for a little more than a week. He is a former smoker. Quit smoking 12 years ago. He has an appointment scheduled with a medical oncologist on 08/15/17. 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 No current facility-administered medications for this visit. REVIEW OF SYSTEMS: I personally reviewed the [facility] Radiation Oncology Questionnaire with the patient. [...] 72 y.o. man with Stage IVB metastatic [id number] squamous cell carcinoma of the RUL s/p [...] plan. [facility] Dept of Radiation Medicine [facility] [place] Afsaneh Schwarz, am functioning as a scribe [...]
--- OUTSIDE RECORDS SUMMARY | ~2017-09-06 | XMS | Encounter Summary ---
Demographics + + + | Address | [address] | | | [place] [address] | + + + | Home Phone [...] Team Providers + +------+ + | Care Millwork Estimator Name | Role | Phone | + [...] | Staff | Aldo Vital | Rd [place], [place] | | | | | Road [place] | [address] | | | | | [place], | | | | | | [place] [address] | | | | | | [phone] | | | +--------+ + + + [...] son in law. The patient lives in [place], although he is currently staying at the [facility] in [place]. The patient is here to begin radiation [...]
--- OUTSIDE RECORDS SUMMARY | ~2017-09-06 | XMS | Encounter Summary ---
Demographics + + + | Address | [address] | | | [place] [address] | + + + | Home Phone | | + + + | Preferred Language | Unknown | + + + | Marital Status | Single | + + + | Zoroastrianism Affiliation | Unknown | + + + | Race | Unknown | + + + | Ethnic Group | Unknown | + + + Author + + + | Author | [facility] | | | and [place] | + + + | Organization | [facility] | | | [...] Providers + +------+ + | Care Chief Engineer Drilling And Recovery Name | Role | Phone | + +------+ + | Unknown, Doctor | PCP | Unavailable | + +------+ + Encounter Details +--------+ + + + + | Date | Type | Department | Care Team | Description | +--------+ + + + + | 07/15/ | Ancillary | [facility] | Tatyana Aguila FNP | | | 2018 | Orders | MED [facility] | [address] [facility] | | | | | RADIOLOGY [address] | [place], [place] | | | | | [place], | [address] | | | | | [place] [address] | | | | | | [phone] | | | +--------+ + + + [...]
[~2017-09-06 12:39] MED LIST: ASPIR-LOW81 MG PO; FOLGARD TABLET1 EAC1 PO; KEPPRA500 MG PO; LIPITOR40 MG PO; VIAGRA100 MG PO
--- OUTSIDE RECORDS SUMMARY | 2017-09-06 12:51 | XMS | Clinical Summary ---
Demographics + + + | Address | [address] | | | [place] [address] | + + + | Home Phone | | + + + | Preferred Language | Unknown | + + + | Marital Status | Single | + + + | Rastafari Affiliation | Unknown | + + + | Race | White | + + + | Ethnic Group | Not or | + + + Author + + + | Author | [facility] | + + + | Organization | [facility] | + + + | Address | Unknown | + + + | Phone | Unavailable | + + + Support + + +---------+ + | Name | Relationship | Address | Phone | + + +---------+ + | Stacy Mcghee | ECON | Unknown | | + + +---------+ + Care Team Providers + +------+ + | Care Warp Bleaching Vat Tender Name | Role | Phone | + +------+ + | No Pcp Per Patient | PP | Unavailable | + +------+ + Source Comments RAPHAEL is fully live on both [facility] and [facility] InPatient.[facility] Allergies No Known Allergies Current Medications + + +-------+---------+------+------+-------+ | Prescription | Sig. | Disp. | Refills | Star | End | Statu | | | | | | t | Date | s | | | | | | Date | | | + + +-------+---------+------+------+-------+ | levETIRAcetam 500 | take 1 tablet by | | 0 | 02/0 | | Activ | | mg oral tablet | mouth twice a day | | | 2/20 | | e | | | | | | 18 | | | + + +-------+---------+------+------+-------+ | ERGOCALCIFEROL | Take 1,000 Units by | | | | | Activ | | (VITAMIN D2) | mouth. | | | | | e | | (VITAMIN D ORAL) | | | | | | | + + +-------+---------+------+------+-------+ | cetirizine 10 mg | Take 10 mg by mouth | | | | | Activ | | oral tablet | once daily. | | | | | e | + + +-------+---------+------+------+-------+ | atorvastatin 40 mg | Take 40 mg by mouth | | | | | Activ | | oral tablet | once daily. | | | | | e | + + +-------+---------+------+------+-------+ | sildenafil 100 mg | Take 100 mg by mouth | | | | | Activ | | oral tablet | once daily as | | | | | e | | | needed. Take | | | | | | | | approximately 1 hour | | | | | | | | before sexual | | | | | | | | activity. Max of | | | | | | | | once daily. | | | | | | + + +-------+---------+------+------+-------+ | naproxen 500 mg | Take 500 mg by mouth | | | | | Activ | | oral tablet | two times daily. | | | | | e | + + +-------+---------+------+------+-------+ | | 1 drop as needed. | | | | | Activ | | carboxymethylcellulo | | | | | | e | | se 0.5 % ophthalmic | | | | | | | | (eye) dropperette | | | | | | | + + +-------+---------+------+------+-------+ | OXYCODONE HCL | Take by mouth as | | | | | Activ | | (OXYCODONE ORAL) | needed. | | | | | e | + + +-------+---------+------+------+-------+ | dexamethasone 4 mg | Take 4 mg by mouth | | | | | Activ | | oral tablet | once daily. | | | | | e | + + +-------+---------+------+------+-------+ Active Problems + + + | Problem | Noted Date | + + + | Encounter for radiotherapy | 08/30/2017 | + + + Encounters +--------+ + + + + | Date | Type | Specialty | Care Team | Description | +--------+ + + + + | 09/05/ | Documentati | | Mis Jarrett | RT Treatment Summary | | 2017 | on | | | | +--------+ + + + + | 08/30/ | Clinical | | Joseph Grissom | Medication | | 2017 | Support | | | management | | | Staff | | | | +--------+ + + + + | 08/30/ | Hospital | | | | | 2017 | Encounter | | | | +--------+ + + + + | 08/28/ | Hospital | | | | | 2017 | Encounter | | | | +--------+ + + + + | 08/26/ | Office | | Yumiko Calderón | Encounter for | | 2017 | Visit | | DMD | radiotherapy | | | | | | (Primary Dx) | +--------+ + + + + | 08/26/ | Hospital | | | | | 2017 | Encounter | | | | +--------+ + + + + | 08/23/ | Hospital | | | | | 2017 | Encounter | | | | +--------+ + + + + | 08/22/ | Hospital | | | | | 2017 | Encounter | | | | +--------+ + + + + | 08/22/ | Documentati | | Joseph Grissom | | | 2017 | on | | | | +--------+ + + + + | 08/21/ | Office | | Srinivasa Fregoso, | Encounter for | | 2017 | Visit | | MD | radiotherapy | | | | | | (Primary Dx) | +--------+ + + + + | 08/21/ | Hospital | | | | | 2017 | Encounter | | | | +--------+ + + + + | 08/19/ | Hospital | | | | | 2018 | Encounter | | | | +--------+ + + + + | 08/19/ | Clinical | | Joseph Grissom | Teaching session | | 2017 | Support | | | with patient | | | Staff | | | | +--------+ + + + + | 08/14/ | Documentati | | Srinivasa Fregoso, | | | 2017 | on | | MD | | +--------+ + + + + | 08/13/ | Hospital | | | | | 2018 | Encounter | | | | +--------+ + + + + | 08/13/ | Office | | Srinivasa Fregoso, | Brain metastases | | 2017 | Visit | | MD | (HCC) (Primary Dx) | +--------+ + + + + | 08/12/ | Hospital | | Srinivasa Fregoso, | | | 2018 | Encounter | | MD | | +--------+ + + + + | 08/06/ | Procedure | | | | | 2018 | Pass | | | | +--------+ + + + + | 08/06/ | Practical Nurse | | Srinivasa Fregoso, | Brain metastases | | 2018 | | | MD | (HCC) (Primary Dx) | +--------+ + + + + | 07/25/ | Lab | | Miguel White | | | 2018 | Requisition | | | | +--------+ + + + + | 07/25/ | Lab | | | | | 2018 | Requisition | | | | +--------+ + + + + | 07/22/ | Document-Sc | | Miguel White | | | 2017 | anned | | | | +--------+ + + + + from Last 3 Months Social History + +-------+ +--------+------+ | Tobacco Use | Types | Packs/Day | Years | Date | | | | | Used | | + +-------+ +--------+------+ | Never Assessed | | | | | + +-------+ +--------+------+ + + + | Sex Assigned at | Date Recorded | | | | + + + | Not on file | | + + + Last Filed Vital Signs + + + + | Vital Sign | Reading | Time Taken | + + + + | Blood Pressure | 83/59 | 08/26/2017 10:10 AM PDT | + + + + | Pulse | 82 | 08/26/2017 10:10 AM PDT | + + + + | Temperature | 36.6 C (97.9 F) | 08/21/2017 12:07 PM PDT | + + + + | Respiratory Rate | 18 | 08/26/2017 10:09 AM PDT | + + + + | Oxygen Saturation | 96% | 08/26/2017 10:09 AM PDT | + + + + | Inhaled Oxygen | - | - | | Concentration | | | + + + + | Weight | 70.3 kg (155 lb) | 08/26/2017 10:09 AM PDT | + + + + | Height | - | - | + + + + | Body Mass Index | - | - | + + + + Plan of Treatment + + + + + | Health Maintenance | Due Date | Last Done | Comments | + + + + + | INFLUENZA VACCINE | | | | | (FLU SHOT) | 8 | | | + + + + + Results SIMULATION IMAGING (08/13/2017 12:01 PM) + + | Narrative | + + | Refer to the encounter notes for imaging results. | + + MRI BRAIN RADIATION THERAPY PLANNING WWO CONTRAST (08/12/2017 8:29 AM) + + + | Specimen | Performing Laboratory | + + + | | [facility] VOICE RECOGNITION | + + + + + | Narrative | + + | EXAM: MRI brain with contrast HISTORY: Radiation planning. Metastatic lung cancer. | | COMPARISON: Outside brain MRI 07/17/17, and 07/24/17 TECHNIQUE: Multiplanar | | multi-sequence MRI of the brain with gadolinium based intravenous contrast. | | FINDINGS: Brain: Right cerebellar and right posterior frontal resection cavities | | contains subacute blood products, with expected surrounding linear enhancement. In | | addition a linear enhancement, there is new nodular enhancement along the peripheral | | right cerebellar resection cavity margin which is new from immediate postoperative MRI, | | as well as nodular enhancement along the anterior and posterior inferior margins of the | | right frontal resection cavity (series 10 image 42 and series 11 image 28), both | | concerning for residual/recurrent tumor. The anterior right frontal ring-enhancing | | metastasis measures 15 x 14 mm, previously 11 x 10 mm on 07/17/2017, with surrounding | | vasogenic edema which has slightly increased in extent. Right anterior temporal pole | | rim-enhancing metastasis measures 5 mm, previously 3 mm on 07/17/2017. Enhancing 2 mm | | nodule within the left posterior cingulate gyrus is new (series 12 image 84, series 11 | | image 22). There is a 2 mm focus of enhancement within the right superior frontal | | gyrus cortex in the region of the craniotomy, not seen previously, of uncertain | | significance (series 12 image 112).. No evidence of acute infarction. The | | ventricles are normal in size and morphology. Soft tissues and marrow: | | Unremarkable Face and orbits: Remote right orbital floor fracture is noted. | | IMPRESSION: Disease progression, with new and increasing nodular enhancement around | | the right frontal and right cerebellar resection cavity margins, as well as enlarging | | and new additional brain metastases. I have personally reviewed the images and, | | if necessary, edited the report. I agree with the report as now presented. | + + + + | Procedure Note | + + | Service Account, Radiant Res In Interface - 08/12/2017 11:32 AM PDT EXAM: MRI brain | | with contrastHISTORY: Radiation planning. Metastatic lung cancer.COMPARISON: Outside | | brain MRI 07/17/17, and 07/24/17TECHNIQUE: Multiplanar multi-sequence MRI of the brain | | with gadolinium based intravenous contrast.FINDINGS:Brain: Right cerebellar and right | | posterior frontal resection cavities contains subacute blood products, with expected | | surrounding linear enhancement. In addition a linear enhancement, there is new nodular | | enhancement along the peripheral right cerebellar resection cavity margin which is new | | from immediate postoperative MRI, as well as nodular enhancement along the anterior and | | posterior inferior margins of the right frontal resection cavity (series 10 image 42 and | | series 11 image 28), both concerning for residual/recurrent tumor. The anterior right | | frontal ring-enhancing metastasis measures 15 x 14 mm, previously 11 x 10 mm on | | 07/17/2017, with surrounding vasogenic edema which has slightly increased in extent. | | Right anterior temporal pole rim-enhancing metastasis measures 5 mm, previously 3 mm on | | 07/17/2017. Enhancing 2 mm nodule within the left posterior cingulate gyrus is new | | (series 12 image 84, series 11 image 22). There is a 2 mm focus of enhancement within | | the right superior frontal gyrus cortex in the region of the craniotomy, not seen | | previously, of uncertain significance (series 12 image 112).. No evidence of acute | | infarction. The ventricles are normal in size and morphology. Soft tissues and marrow: | | UnremarkableFace and orbits: Remote right orbital floor fracture is | | noted.IMPRESSION:Disease progression, with new and increasing nodular enhancement around | | the right frontal and right cerebellar resection cavity margins, as well as enlarging | | and new additional brain metastases.I have personally reviewed the images and, if | | necessary, edited the report. I agree with the report as now presented. | | | | | |I have personally reviewed the images and, if necessary, edited the report. I agree with t he report as now presented. | + + CREATININE, POC (08/12/2017 6:59 AM) + +-------+ + | Component | Value | Ref Range | + +-------+ + | CREATININE, POC | 0.9 | 0.7 - 1.3 mg/dL | + +-------+ + + + + | Specimen | Performing Laboratory | + + + | Blood | [facility] [place] [facility] [address] | | | [place] [address] | + + + SPECIMEN ROUTING (07/22/2017 12:00 PM) + + + | Specimen | Performing Laboratory | + + + | Slide-Block | [facility] [address] | | [address] [place] [address] | + + + FISH, MOLECULAR PROBE, FFPE (07/22/2017 12:01 AM) + + + + | Component | Value | Ref Range | + + + + | DISCLAIMER | Negative for ALK and ROS1 rearrangement. | | | | FISH was performed with the ALK break-apart | | | | probe and the ROS1 break-apart probe, with | | | | 100 interphase cells scored for each | | | | probe, as listed below. There was no | | | | evidence for disruption of ALK or ROS1 in | | | | any of the cells examined. Note: With | | | | ALK, 75% of cells had extra, intact probe | | | | signals, with most of these having 3~5 | | | | signals total. Gain of ALK signals is | | | | common in non-small cell lung carcinoma and | | | | may reflect chromosome 2 polysomy. The | | | | clinical significance of this finding is | | | | unknown. See Salido et al. 2011 J Thorac | | | | Oncol 6. With ROS1, 76% of cells had | | | | extra, intact probe signals, with most of | | | | these having 3~5 signals total. The | | | | significance of this finding is unknown. | | | | For ALK, positive defined as >15% of cells | | | | showing split signals (eg. 1r/1g/1f) | | | | (Josette et al. 2013 J Thor Oncol 8, | | | | 823-859).For ROS1, positive defined as >15% | | | | of cells showing split signals or isolated | | | | 3' signals (Bergethon et al. 2012 JCO 30, | | | | [phone]; Ovidio et al. 2013 Am J Surg | | | | Pathol 37). (Comment: This interphase | | | | FISH study assesses only the probe-specific | | | | regions listed below. It is not | | | | intended to stand alone, but rather to | | | | provide supplemental information to routine | | | | cytogenetic studies, clinical assessment | | | | and pathological findings.) Thank you very | | | | much for your referral. If you have any | | | | questions regarding this report or future | | | | cytogenetic testing issues, please feel | | | | free to contact us. Reason for Referral: | | | | Metastatic poorly differentiated non-small | | | | carcinoma The clinical interpretation was | | | | made by the clinical machinist. This test | | | | was developed and its performance | | | | characteristics determined by the [facility] | | | | [facility]. It has | | | | not been cleared or approved by the Food | | | | and Drug Administration. FDA approval is | | | | not required for the clinical use of the | | | | test, and therefore validation was done as | | | | required under the requirements of the | | | | Clinical Laboratory Improvement Act of 1988 | | | | (CLIA). The [facility] | | | | Laboratories are fully licensed by the | | | | [facility] under CLIA and are | | | | accredited by the [employer] | | | | Pathologists (CAP). Laboratory | | | | Director: Duke Gore M.D., | | | | Ph.D Electronically reviewed and signed | | | | by:Kalin Sahu, PhD, [facility] | | | | [employer] Clinical Molecular | | | | Geneticist07/30/2017 at 12:14 PM | | | | Reviewed and electronically signed by | | | | ERNESTINE CRUZ MD,[facility]07/30/2017 4:18 PM | | + + + + + + + | Specimen | Performing Laboratory | + + + | Slide-Block | [facility] [address] | | [address] [place] [address] | + + + GENETRAILS LUNG CANCER PANEL (07/22/2017 12:01 AM) + + + + | Component | Value | Ref Range | + + + + | KowlooniaRAILS LUNG | See Interpretation. | | | CANCER PANEL | | | + + + + | SAMPLE TESTED | Specimen submitted: Right frontal | | | | tumorReported diagnosis: Metastatic poorly | | | | differentiated non-small cell carcinoma | | + + + + | INTERPRETATION | Negative for EGFR gene mutation. Negative | | | | for BRAF gene mutation. Assay QC: Estimated | | | | tumor content in material tested: | | | | 80%Average read depth: [id number] per amplicon | | | | Assay Information: This test is designed | | | | to detect alterations in EGFR and BRAF by | | | | next-generation sequencing. Each specimen | | | | is examined microscopically and genomic DNA | | | | is extracted from microdissected, | | | | tumor-rich areas. Mutations in the gene | | | | exons and flanking intronic sequences are | | | | screened using a multiplexed PCR library | | | | preparation that is run on an Illumina | | | | [id number]. The minimum detectable mutant | | | | allele ratio ranges between 5% and 15%, | | | | depending on sequence read depth. The | | | | minimum required coverage is 100 reads per | | | | gene segment (15% sensitivity). A | | | | high-resolution melting curve assay is used | | | | as an additional screen for large | | | | deletions in EGFR exon 19. | | + + + + | DISCLAIMER | This test was developed and its performance | | | | characteristics determined by the [facility] | | | | [facility]. It has | | | | not been cleared or approved by the Food | | | | and Drug Administration. FDA approval is | | | | not required for the clinical use of the | | | | test, and therefore validation was done as | | | | required under the requirements of the | | | | Clinical Laboratory Improvement Act of 1988 | | | | (CLIA). The [facility] | | | | Laboratories are fully licensed by the | | | | state [facility] under CLIA and are | | | | accredited by the [employer] | | | | Pathologists (CAP). Laboratory | | | | Director: Duke Gore M.D., | | | | Ph.D Reviewed and electronically signed by | | | | KEN WORRELL MD3 7:54 AM | | + + + + + + + | Specimen | Performing Laboratory | + + + | Slide-Block | [facility] [address] | | [address] [place] [address] | + + + NSCLC FISH KYLAH, LINWOOD (07/22/2017 12:01 AM) + +--------+ + | Component | Value | Ref Range | + +--------+ + | NSCLC FISH PANEL | Normal | | + +--------+ + | CELLS SCORED BIOCARE | 100 | | | ALK (2P23) | | | | BREAK-APART / EML-4 | | | | (2P21) (SA) | | | + +--------+ + | CELLS SCORED BIOCARE | 100 | | | ROS1 (6Q22.1) | | | | BREAK-APART | | | + +--------+ + + + + | Specimen | Performing Laboratory | + + + | Slide-Block | [facility] [address] | | [address] [place] [address] | + + + OUTSIDE LAB - PATHOLOGY (07/22/2017)from Last 3 Months"
--- NOTE | 2017-09-06 16:20 | NUR ---
NEW ADMIT VITALS DONE AND FRESH ICE WATER GIVEN. JAYDEN IVERSON IN RM. FAMILY WAITING OUTSIDE DOOR. CALL LIGHT IN REACH.
--- NOTE | 2017-09-06 16:45 | NUR ---
PATIENT TO ROOM FROM ED. TRANSF[facility] BED FROM [facility], NEEDED STBY ASSIST. APPEARS UNSTEADY ON FEET AND DOES NOT TAKE DIRECTION VERY WELL. BED ALARM ON. PATIENT APPEARS ORIENTED TO SELF AND ENVIRONMENT. ANTIBIOTICS INFUSED AND BOLUS #2 INFUSING NOW. PROVIDED PATIENT WITH BANANA. LUNG SOUNDS CLEAR THROUGHOUT, COUGH WITH SCANT AMOUNT OF YELLOW FLIM.
[2017-09-06] MEDS ORDERED: ZYRTEC10 MG PO (16:56)
[2017-09-06] MEDS ORDERED: TYLENOL325 MG PO (16:59)
[2017-09-06] MEDS ORDERED: KEPPRA500 MG PO (17:00)
[2017-09-06] MEDS ORDERED: SENNA8.6 MG PO (17:49)
[2017-09-06] MEDS ORDERED: NAPROXEN500 MG PO (17:53)
[2017-09-06] MEDS ORDERED: VITAMIN D1000 UNI1 PO (17:53)
[2017-09-06] MEDS ORDERED: ZOFRAN8 MG PO (17:55)
[2017-09-06] MEDS ORDERED: NATURAL BALANCE15 M1 OP (17:56)
[2017-09-06] MEDS ORDERED: METOPROLOL TART25 MG PO (17:57)
[2017-09-06] MEDS ORDERED: MIRALAX17 GM PO (17:59)
[2017-09-06] MEDS ORDERED: DECADRON0.5 MG PO (18:01)
--- NOTE | 2017-09-06 18:06 | NUR ---
MED REC COMPLETE
--- NOTE | 2017-09-06 18:43 | NUR ---
PATIENT TO FLOOR FROM ED ADMITTED WITH PNEAMONIA. RECENT CHEMO TREATMENT LAST SATURDAY, REPORT FROM ED SAYS PATIENT WOKE UP WITH SOB. WBC 16 AND LA 2.1. IV ANTIBIOTICS INITIATED IN ED AZITHROMYCIN AND CEFIPIME. HAS SCANT AMOUNT OF YELLOW FLIM, SPUTUM CULTURE STILL NEEDED. 2L BOLUS, NOW LR@ 75ML/HR. 99% ON RA, LUNG SOUNDS CLEAR.
--- NOTE | 2017-09-06 19:35 | NUR ---
RECIEVED BEDSIDE REPORT FROM DAY SHIFT NURSE. PT IS IN BED WATCHING TV. LR INFUSING AT 75/H. REPORTS NO PAIN AT THIS TIME. RR WNL. PT REPORTS NO SOB FEELINGS. CALL LIGHT WITHIN REACH, NO OTHER NEEDS ATH THIS TIME.
--- NOTE | 2017-09-06 19:55 | NUR ---
PT TEMPERATURE WAS 99.6. ENCOURAGE INCETIVE SPEROMETER USE. TEMP DECRESSED TO 98.4.
--- NOTE | 2017-09-06 21:22 | NUR ---
PT REQUESTED TYLENOL FOR HEADACHE OF 2/10.
--- NOTE | 2017-09-06 22:32 | NUR ---
VITALS AND I&OS DONE AND CHARTED. FRESH WATER GIVEN. BEDSIDE TABLE AND CALL LIGHT WITHIN REACH.
--- NOTE | 2017-09-06 22:56 | NUR ---
STATISTICAL ENGINEER REPORTED PT B/P OF 99/51. RECHECKED MANUALLY. B/P WAS 93/52 HEART RATE WAS 73 PT REPORTS NO OTHER FEELINGS OF DIZZY OR LIGHTHEADEDNESS. HOSPITALIST INFORMED. NO NEW ORDERS RECIEVED. WILL CONTINUE TO MONITOR CLOSELY.
--- NOTE | 2017-09-07 01:46 | NUR ---
VITALS AND I&OS DONE AND CHARTED. BEDSIDE TABLE AND CALL LIGHT WITHIN REACH.
--- NOTE | 2017-09-07 02:20 | NUR ---
PT APPEARS TO BE SLEEPING. HEART RATE IS 77, SATURATION 94% ON RA. B/P HAS INCREASED TO 112/69. RR EQUAL AND NON-LABORED. CALL LIGHT WITHIN REACH. ASSESSMENT COMPLETED. NO CHANGES FROM BEGINING OF SHIFT.
--- NOTE | 2017-09-07 04:10 | NUR ---
PT APPEARS TO BE SLEEPING. CONT PULSE OX IN PLACE. SATURATIONS AND HEART RATE WNL. RESPIRATIONS EQUAL AND NON-LABORED. CALL LIGHT WITHIN REACH. BED ALARM IN PLACE.
--- NOTE | 2017-09-07 04:38 | NUR ---
BED ALARM SOUNDED WHEN PT TRIED TO STAND UP TO URINATE IN URINAL AT BEDSIDE. PT NEEDS TO BE REMINDED TO USE CALL LIGHT WHEN EXITING BED. CALL LIGHT WITHIN REACH, PT JUST FORGETS TO USE IT. URINATED 250ML THEN BACK TO BED. BED ALARM IN PLACE CALL LIGHT WITHIN REACH.
--- NOTE | 2017-09-07 04:46 | NUR ---
PT HAD AN OVER ALL GOOD NIGHT. BED ALARM HAS BEEN IN PLACE. PT TRIED EXITING BED TWICE TO URINATE WITHOUT USING CALL LIGHT. AFTER METOPROLOL WAS GIVEN THE PT HAD A PROP IN PRESSURE TO 93/51. DR JORDAN NOTIFIED. TOLD TO MONITOR. PT HAS HX OF CHEMO LAST SATURDAY. DOUBLE GLOVE FOR BODY FLUIDS. THE ABDOMEN APPEARS MILDLY DISTENED. BOWEL TONES ACTIVE. LUNGS ARE CLEAR AND DIM. SPUTUM CULTURE HAS NOT BEEN COLECTED YET. LACTIC ACID WAS 2.1. WILL NOT REPEAT. PT IS ON MAXIPIME. WAS SLIGHTLY FEBRILE LAST NIGHT. IS ENCOURAGED AND LATER TYLENOL GIVEN. PT HAS BEEN AFEBRILE THE REST OF THE NIGHT. V/S ARE Q4. REGULAR DIET. SBA WITH FWW. NO SOB.
--- NOTE | 2017-09-07 05:51 | NUR ---
VITALS AND I&OS DONE AND CHARTED. BEDSIDE TABLE AND CALL LIGHT WITHIN REACH.
--- NOTE | 2017-09-07 07:35 | NUR ---
SHIFT CHANGED REPORT RECEIVED AT BEDSIDE FROM SALVADOR. PATIENT RESTIN GIN BED, AWAKE A&O. REPORTS HEADACHE. DENIES NAUSEA. IV FLUID INFUSING. NO APPARENT DISTRESS.
--- NOTE | 2017-09-07 07:54 | NUR ---
PT'S VISITOR CAME TO THE NURSE'S TO LET US KNOW THE PT NEEDED ASSISTANCE. WENT INTO ROOM PT HAD HAD SOME INCONTINENCE OF STOOL, I HELPED HIM TO THE BATHROOM AND GAVE HIM CLEAN DEPENDS. PT THEN RETURNED TO BED AND DID NOT NEED ANYTHING ELSE AT THE MOMENT
--- NOTE | 2017-09-07 09:00 | NUR ---
PATIEN ASSISTED TO BATHROOM THEN BACK TO BED. PATIENT REPORTED HEADACHE. AND RATED PAIN AT 6/10 . PATIENT WAS MEDICATED. SHIFT ASSESSMENT COMPLETED. LUNGS CLEAR BUT DIM IN THE BASES. PATIENT IS ALERT AND ORIENTED. REPORTED WEAKNESS DUE TO RECENT CHEMO. NO EDEMA. PERIPHERAL PULSES PALPABLE. SKIN INTACT. IV SITE PATENT NO SIGN OF INFILTRATION AND FLUID IS INFUSING WELL. NO APPARENT DISTRESS NOTED. PATIENT IS ON ROOM AND 02 SATURATION 95-97%. CALL LIGHT IN REACH. PATIENT EDUCATED TO USE CALL LIGHT WHEN NEEDED HELP.
--- NOTE | 2017-09-07 10:16 | NUR ---
PT IS SITTING UP IN CHAIR WITH CALL LIGHT IN REACH. PT ASKED FOR A NEW PAIR OF DEPENDS. PT DID NOT NEED ANYTHING ELSE AT THE MOMENT
--- NOTE | 2017-09-07 11:39 | EKG ---
[facility] [address] [place] [address] Signed Sinus tachycardia Otherwise normal ECG When compared with ECG of 05-JUL-2017 12:21, Vent. rate has increased BY 53 BPM Confirmed by RIAZ JORDAN MD ([id number]) on 09/07/2017 11:38:48 AM Electronically Signed By: RIAZ JORDAN MD 09/07/17 1139 PATIENT NAME: LEIA DOMINGUEZ Electrocardiogram DATE OF : 43 PHYSICIAN: RIAZ JORDAN MD REPORT #: [id number] REPORT IS CONFIDENTIAL AND NOT TO BE RELEASED WITHOUT AUTHORIZATION
--- NOTE | 2017-09-07 13:06 | NUR ---
PATIENT RESTING IN BED AT THIS TIME. WARM BLANKETS PROVIDED.
--- NOTE | 2017-09-07 14:56 | NUR ---
PT IS SITTING UP IN BED RESTING SAFELY AND DID NOT NEED ANYTHING AT THE MOMENT
--- NOTE | 2017-09-07 14:56 | NUR ---
PATIENT RESTING IN BED. REPORTS THAT HIS HEADACHE IS BETTER NOW. NO OTHER REQUEST MADE. IV ABX INFUSING. CALL LIGHT IN REACH.
--- NOTE | 2017-09-07 15:30 | NUR ---
PATIENT WAS UP WALKING IN THE ROOM. NO COMPLAINTS.
--- NOTE | 2017-09-07 17:14 | NUR ---
PATIENT SITTING IN BED EATING DINNER. REPORTS BEING WEAK. NO OTHER COMPLAINS. CALL LIGHT IN REACH.
--- NOTE | 2017-09-07 18:19 | NUR ---
PATIENT HAD DONE WELL FOR THIS SHIFT. NO SOB. DECREASED APPETITE. IV AZITHROMYCIN AND CEFEPIME. PATIENT IS INDEPENDENT IN ROOM. GOOD URINE OUTPUT. OCCASIONAL COUGH. HAD 1 BM TODAY. AMBULATED IN ROOM AND ONCE IN THE HALLWAY. MAY DC TOMORROW.
--- NOTE | 2017-09-07 18:29 | NUR ---
PT IS RESTIN IN BEDWITH CALL LIGHT IN REACH PT DID NOTNEED ANYHTING AT THE MOMENT
--- NOTE | 2017-09-07 19:09 | NUR ---
IN ROOM FOR REPORT, PT IS AWAKE IN BED AND DENIES NEEDS AT THIS TIME. CALL LIGHT IS WITHIN REACH.
--- NOTE | 2017-09-07 22:58 | NUR ---
PT IS RESTING WITH EYES CLOSED, RESPIRATIONS EVEN AND NONLABORED. CALL LIGHT IS WITHIN REACH.
--- NOTE | 2017-09-08 02:04 | NUR ---
PATIENT RESTING COMFORTABLY IN BED, BREATHING IS EVEN AND UNLABORED. FLACC SCORE OF 0. CALL LIGHT WITHIN REACH.
--- NOTE | 2017-09-08 04:00 | NUR ---
PATIENT RESTING IN BED, BREATHING IS EVEN AND UNLABORED. DENIES NEEDS AT THIS TIME. CALL LIGHT WITHIN REACH.
--- NOTE | 2017-09-08 05:56 | NUR ---
PATIENT'S NIGHT WAS UNEVENTFUL. HE HAS BEEN RESTING THROUGHOUT SHIFT. REMAINS ON ROOM AIR, LUNG SOUNDS ARE CLEAR, DIM IN BASES, OCCASIONAL COUGH. NO COMPLAINTS OF PAIN THIS SHIFT. SBA, IV IS SALINE LOCKED. NO ACUTE CHANGES.
--- NOTE | 2017-09-08 06:07 | NUR ---
VITALS AND I&OS DONE AND CHARTED. FRESH WATER GIVEN. PT NEEDS NOTHING ELSE AT THIS TIME. BEDSIDE TABLE AND CALL LIGHT WITHIN REACH.
--- NOTE | 2017-09-08 07:44 | NUR ---
jacque called to move to chair for breakfast. patient stating he feels better today. patient lungs are clear. zoilat stating he is having an occasional cough, but finally being able to cough sputum up. patient remains on ra sating well. voiding well. no edema. patient stating he hopes he gets to go home today.
[2017-09-08] MEDS ORDERED: AMOX TR-K CLV1 EAC1 PO ×2 (08:02→08:05)
--- NOTE | 2017-09-08 08:15 | NUR ---
rounded with dr. Russell in room. plan for d/c of patient today.
--- NOTE | 2017-09-08 09:00 | NUR ---
PHARMACY IN ROOM TO GIVEN DISCHARGE EDUCATION.
--- NOTE | 2017-09-08 09:37 | NUR ---
DISCHARGE EDUCATION GIVEN. PATIENT SISTER IN ROOM. UPDATED MEDICATIONS. NEW ANTIBIOTIC SENT TO [facility].
== END 2017-09-08 09:34 | disposition home or self-care (01) | DRG 178 ==
LOC: ED 12:39 → MS 15:47
PROVIDERS: ADMIT Internal Medicine
DX: J15.6 Pneumonia due to other Gram-negative bacteria (principal); C34.90 Malignant neoplasm of unspecified part of unspecified bronchus or lung; C79.31 Secondary malignant neoplasm of brain; G40.909 Epilepsy, unspecified, not intractable, without status epilepticus; E78.5 Hyperlipidemia, unspecified; I10 Essential (primary) hypertension; Z66 Do not resuscitate; Z79.82 Long term (current) use of aspirin; Z87.891 Personal history of nicotine dependence
CPT/HCPCS: 36415; 71046; 80053; 83605; 83735; 83880; 84484; 85025; 87040; 87070; 87205; 93005; 93010; 94640; J0456; J0692; J1650; J7030; J7050; J7120; J8540

== ENCOUNTER 2018-01-17 06:44 | Day surgery (SDC) | payer OTHER ==
[~2018-01-17] VITALS: Ht 175.3 cm; Wt 78.5 kg
[~2018-01-17 06:44] MED LIST changes: +AMOX TR-K CLV1 EAC1 PO; +CALCIUM MAGNES1 EAC2 PO; +DECADRON0.5 MG PO; +DECADRON4 MG PO; +METOPROLOL TART25 MG PO; +MIRALAX17 GM PO; +NAPROXEN500 MG PO; +NATURAL BALANCE15 M1 OP; +SENNA8.6 MG PO; +TYLENOL325 MG PO; +VITAMIN D1000 UNI1 PO; +ZOFRAN8 MG PO; +ZYRTEC10 MG PO
--- NOTE | 2018-01-17 10:24 | NUR ---
01/17/18 Melodie Carmichael 1000- PT ARRIVES TO PACU AWAKE AND TALKING WITH STAFF. PT ON 8L VIA MASK. OXYGEN SAT HIGH 90'S. PT REPORTS NO PAIN OR NAUSEA. 1002- OXYGEN TITRATED DOWN TO 6L VIA MASK. OXYGEN SAT REMAINS HIGH 90'S ON THIS. 1004- OXYGEN TURNED OFF. OXYGEN SAT REMAINS HIGH 90'S ON RA. 1007- XRAY IN THE ROOM FOR PLACEMENT. DR. LUI EXAMINED THE XRAY AT THE BEDSIDE. 1013- PT AMBULATED TO THE RESTROOM. TOLERATED WELL. REPORTED DIZZINESS INITIALLY BUT RESOLVED BEFORE AMBULATING TO THE RESTROOM. PT WAS ABLE TO URINATE.
--- NOTE | 2018-01-17 16:16 | OR ---
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 PROCEDURE PERFORMED: 1. Placement of left subclavian Aatc-J-mljptixv. 2. Physician-directed fluoroscopy. ESTIMATED BLOOD LOSS: None. INDICATIONS: Leia is a 72-year-old gentleman who was diagnosed with right upper lobe lung cancer with brain METS in July 2017. He already went through his brain surgery. He also had radiation chemo for the brain. He has been asked to see me now for placement of a Myry-E-Cahgmkol for ongoing treatment. He specifically requested the catheter be on the left side. He does have some neglect on that left side of his body and uses the right side much more frequently. In the office, I explained to Leia the nature of a Rtnd-A-Mrcefnar. We explained the nature of the surgery along with its risks including, but not limited to bleeding, infection, scarring, change in contour of the skin, pneumothorax requiring chest tube placement, as well as catheter embolization requiring retrieval. He had expressed understanding and wished to proceed. PROCEDURE NOTE: I had met with Leia in our preop area. He affirmed today that he wants the catheter on the left side. After we took him into the operating room, we placed him in the supine position under monitored anesthesia care. He was given preoperative antibiotics along with subcutaneous heparin. SCDs were utilized. He was prepped and draped in the usual sterile fashion. We injected local anesthetic into his left chest wall underneath the left clavicle. We actually entered the subclavian vein on the 1st pass of the needle, but the wire would not feed, so we repositioned the needle and then the wire was able to feed without difficulty. We used fluoroscopy to check the position of the wire. After this, we developed the pocket on the anterior chest wall, and we dilated the track and checked the position of our dilator with the fluoroscopy unit. After this, Electronically Signed By: SHAINA LUI MD 01/17/18 1616 PATIENT NAME: LEIA DOMINGUEZ JR OPERATIVE REPORT DATE OF : 43 REPORT #: [id number] PHYSICIAN: SHAINA LUI MD PCP: CALLUM GAMEZ REPORT IS CONFIDENTIAL AND NOT TO BE RELEASED WITHOUT AUTHORIZATION [facility] [address], [place] [address] Signed the wire was removed and the catheter was inserted up to 21 cm and the entire length of the catheter was re-checked. We then attached the hub onto the catheter with the help of the collar and we were able to withdrawal blood easily and inject saline easily. We placed the hub into the pocket on the chest wall and rechecked the position of the catheter and everything was in satisfactory position. We then filled the catheter with concentrated heparin. The catheter was held in place with interrupted 2-0 Prolene sutures. The wound was irrigated and suctioned out until clear. We closed the dermis with interrupted 3-0 Monocryl sutures and the skin edge is reapproximated with a running 6-0 fast absorbing plain gut suture. Dry gauze and tape were then applied. Leia was then transferred to his hospital bed and taken into recovery room in stable condition. We just finished his portable chest x-ray and it looks like everything is in satisfactory position without pneumothorax. Shaina Lui MD ALB/MODL /[id number] cc: MD Leia Roy, CAROLINE Sanders Copies: SHAINA LUI MD,CALLUM MOY MD ~ Electronically Signed By: SHAINA LUI MD 01/17/18 1616 PATIENT NAME: LEIA DOMINGUEZ JR OPERATIVE REPORT DATE OF : 43 REPORT #: [id number] PHYSICIAN: SHAINA LUI MD PCP: CALLUM GAMEZ REPORT IS CONFIDENTIAL AND NOT TO BE RELEASED WITHOUT AUTHORIZATION
== END 2018-01-17 10:50 | disposition home or self-care (01) ==
LOC: DS 06:44
PROVIDERS: Colon & Rectal Surgery
PROC: 02HV33Z Insertion of Infusion Device into Superior Vena Cava, Percutaneous Approach (ICD-10-PCS; 2018-01-17)
PROC: B518ZZA Fluoroscopy of Superior Vena Cava, Guidance (ICD-10-PCS; 2018-01-17)
PROC: 0JH60XZ Insertion of Tunneled Vascular Access Device into Chest Subcutaneous Tissue and Fascia, Open Approach (ICD-10-PCS; principal; 2018-01-17 08:00)
DX: C34.11 Malignant neoplasm of upper lobe, right bronchus or lung (principal); C79.31 Secondary malignant neoplasm of brain; E78.5 Hyperlipidemia, unspecified; Z79.899 Other long term (current) drug therapy; Z87.01 Personal history of pneumonia (recurrent)
CPT/HCPCS: 00532; 71045; 77001; C1788; J0690; J1100; J1644; J2250; J2405; J2704; J3010; J7120